=== PATIENT | female | born 1965 | race African-American/Black ===

== ENCOUNTER 2025-02-21 12:20 | Inpatient (IN) | payer OTHER ==
[~2025-02-21] VITALS: Ht 175.3 cm; Wt 120.8 kg
[~2025-02-21 12:20] MED LIST: ALBU18HF2 IH; FLUT1DIS3 INH; LEVO750T68 MT; P20 PO
[2025-02-21] MEDS: KETOROLAC 15MG/ML VIAL IM STA (13:40)
[2025-02-21] MEDS: SODIUM CHLORIDE 0.9% 1,000 ML IV ONE ×2 (13:43→20:39)
[2025-02-21 15:49] LABS: BASOPHILS % 0.5 % (0.0-2.0); EOSINOPHILS % 0.2 % (0.0-5.0); HEMATOCRIT. 31.9 % (36.0-48.0); HEMOGLOBIN. 10.3 g/dL (12.0-16.0); LYMPHOCYTES % 34.5 % (20.0-50.0); MEAN PLATELET VOLUME 7.2 fl (7.4-10.4); MONOCYTES % 9.5 % (2.0-8.0); NEUTROPHILS % 55.3 % (40.0-76.0); PLATELET 151 x1000/uL (130-400); RED BLOOD CELL COUNT 2.95 mill/uL (4.2-5.4); RED CELL DISTRIBUTION WIDTH 18.3 % (11.6-14.6)
[2025-02-21 15:59] LABS: CREATININE 0.7 mg/dL (0.6-1.0); INR 1.3
[2025-02-21 16:00] LABS: UREA NITROGEN BLOOD 9 mg/dL (9-23)
[2025-02-21 16:01] LABS: ASPARTATE AMINOTRANSFERASE 25 IU/L (<34)
[2025-02-21 16:02] LABS: BILIRUBIN DIRECT 0.5 mg/dL (<=3.0); BILIRUBIN TOTAL 0.9 mg/dL (0.1-1.0); PROTEIN TOTAL 5.5 g/dL (6.0-8.3)
[2025-02-21] MEDS: POTASSIUM CHLORIDE 20MEQ/PACKET PO SCH (16:37)
[2025-02-21 19:18] LABS: COLOR URINE DARK YELLOW (YELLOW); GLUCOSE URINE NEGATIVE (NEGATIVE); KETONES URINE TRACE (NEGATIVE); LEUKOCYTE ESTERASE URINE TRACE (NEGATIVE); NITRITE URINE POSITIVE (NEGATIVE); OCCULT BLOOD URINE NEGATIVE (NEGATIVE); PH URINE 6.0 (4.5-8.0); PROTEIN URINE 1+ (NEGATIVE); SPECIFIC GRAVITY URINE 1.023 (1.005-1.030); UROBILINOGEN URINE 1.0 E.U./dL (0.2-1.0)
[2025-02-21] MEDS ORDERED: KCL 10MEQ/50ML PREMIX 50 ML IV SCH (20:00)
[2025-02-21] MEDS ORDERED: LEVOFLOXACIN 500MG PREMIX 100 ML IV SCH (20:00)
[2025-02-21 20:08] LABS: CLARITY URINE HAZY (CLEAR)
[2025-02-21 20:09] LABS: WBC URINE 0-2 /hpf (0-2)
[2025-02-21 20:10] LABS: BACTERIA URINE 2+; MUCUS URINE 1+ /lpf (< = 2+); RBC URINE NONE SEEN /hpf (0-2); SQUAMOUS EPITHELIAL CELL URINE 2+ /lpf (RARE/1+)
[2025-02-21] MEDS: MORPHINE SULFATE 2 MG/ML INJ (NOT FOR IM USE) IV ONE (21:22)
[2025-02-21] MEDS: LEVOFLOXACIN 500MG PREMIX 100 ML IV SCH (21:54)
[2025-02-21] MEDS: IOHEXOL-300 100 ML BOTTLE ONE (23:19)
[2025-02-21] MEDS: KCL 10MEQ/50ML PREMIX 50 ML IV SCH (23:24)
[2025-02-22] MEDS ORDERED: CEFTRIAXONE 1GM/50ML 50 ML IV SCH (01:00)
[2025-02-22 01:29] VITALS: BP 91/50; PULSE 71; RESP 15; TEMP 36.3068
[2025-02-22 04:00] VITALS: BP 94/55; PULSE 75; RESP 18; TEMP 36.6; O2SAT 100
[2025-02-22] MEDS: ONDANSETRON HCL 4MG/2ML INJ IV PRN (06:37)
[2025-02-22 08:00] VITALS: BP 83/53; PULSE 76; RESP 18; TEMP 36.7; O2SAT 98
[2025-02-22 12:00] VITALS: BP 145/72; PULSE 72; RESP 15; TEMP 36.3; O2SAT 98
[2025-02-22] MEDS ORDERED: NALOXONE HCL 0.4MG/ML VIAL IV PRN (12:45)
[2025-02-22 16:00] VITALS: BP 86/45; PULSE 74; RESP 17; TEMP 36.6; O2SAT 98
[2025-02-22] MEDS: ACETAMINOPHEN 650MG/20.3ML UDC PO PRN (16:02)
[2025-02-22 20:00] VITALS: BP 94/50; PULSE 108; RESP 18; TEMP 36.4; O2SAT 99
[2025-02-22] MEDS: LEVOFLOXACIN 500MG PREMIX 100 ML IV SCH (21:37)
[2025-02-23] VITALS: BP 91/54; PULSE 78; RESP 18; TEMP 36.6; O2SAT 98
[2025-02-23] MEDS: HYDROCODONE/ACETAMINOPHEN 10/325MG TABLET PO PRN (00:04)
[2025-02-23 04:00] VITALS: BP 87/55; PULSE 77; RESP 18; TEMP 36.4; O2SAT 100
[2025-02-23 08:00] VITALS: BP 90/57; PULSE 65; RESP 17; TEMP 36.5; O2SAT 99
[2025-02-23] MEDS: PANTOPRAZOLE SODIUM 40 MG/VIAL IV SCH (09:00)
[2025-02-23] MEDS: CHLORDIAZEPOXIDE 25MG CAPSULE PO SCH (09:00)
[2025-02-23 12:00] VITALS: BP 100/58; PULSE 64; RESP 18; TEMP 36.7; O2SAT 98
[2025-02-23] MEDS: DEXT 5%/0.45% NACL 1000ML 1,000 ML IV SCH (13:05)
[2025-02-23 16:00] VITALS: BP 88/51; PULSE 70; RESP 19; TEMP 36.3; O2SAT 96
[2025-02-23] MEDS: SUCRALFATE 1G TABLET PO SCH (18:04)
[2025-02-23] MEDS: MIDODRINE HCL 5MG TABLET PO SCH (18:53)
[2025-02-23 20:00] VITALS: BP 90/61; PULSE 60; RESP 16; TEMP 36.4; O2SAT 100
[2025-02-23 22:14] LABS: BASOPHILS % 0.4 % (0.0-2.0); EOSINOPHILS % 0.8 % (0.0-5.0); HEMATOCRIT. 27.6 % (36.0-48.0); HEMOGLOBIN. 9.0 g/dL (12.0-16.0); LYMPHOCYTES % 41.7 % (20.0-50.0); MEAN PLATELET VOLUME 7.7 fl (7.4-10.4); MONOCYTES % 7.8 % (2.0-8.0); NEUTROPHILS % 49.3 % (40.0-76.0); PLATELET 126 x1000/uL (130-400); RED BLOOD CELL COUNT 2.61 mill/uL (4.2-5.4); RED CELL DISTRIBUTION WIDTH 17.7 % (11.6-14.6)
[2025-02-23 22:28] LABS: CREATININE 0.6 mg/dL (0.6-1.0); UREA NITROGEN BLOOD 11 mg/dL (9-23)
[2025-02-24] VITALS: BP 89/60; PULSE 64; RESP 16; TEMP 36.4; O2SAT 98
[2025-02-24 03:25] LABS: BASOPHILS % 0.3 % (0.0-2.0); EOSINOPHILS % 1.2 % (0.0-5.0); HEMATOCRIT. 25.5 % (36.0-48.0); HEMOGLOBIN. 8.2 g/dL (12.0-16.0); LYMPHOCYTES % 42.6 % (20.0-50.0); MEAN PLATELET VOLUME 7.6 fl (7.4-10.4); MONOCYTES % 6.6 % (2.0-8.0); NEUTROPHILS % 49.3 % (40.0-76.0); PLATELET 113 x1000/uL (130-400); RED BLOOD CELL COUNT 2.38 mill/uL (4.2-5.4); RED CELL DISTRIBUTION WIDTH 17.9 % (11.6-14.6)
[2025-02-24 03:29] LABS: INR 1.5
[2025-02-24 04:00] VITALS: BP 85/59; PULSE 66; RESP 17; TEMP 36.4; O2SAT 99
[2025-02-24 08:00] VITALS: BP 109/61; PULSE 70; RESP 19; TEMP 36.6; O2SAT 98
[2025-02-24] MEDS: MORPHINE SULFATE 4 MG/ML INJ (FOR IV/IM USE) IV PRN (08:51)
[2025-02-24] MEDS: KCL 20MEQ/100ML PREMIX 100 ML IV SCH (08:52)
[2025-02-24] MEDS: POTASSIUM CHLORIDE 20MEQ/PACKET PO NR ×2 (10:00→17:37)
[2025-02-24 12:00] VITALS: BP 112/81; PULSE 76; RESP 17; TEMP 36.7; O2SAT 97
[2025-02-24] MEDS ORDERED: PROPOFOL 200MG/20ML VIAL IV ONE (14:10)
[2025-02-24 16:00] VITALS: BP 106/66; PULSE 75; RESP 18; TEMP 36.4; O2SAT 100
[2025-02-24 20:00] VITALS: BP 101/67; PULSE 75; RESP 20; TEMP 36.4; O2SAT 95
[2025-02-24] MEDS: LEVOFLOXACIN 750MG PREMIX 150 ML IV SCH (20:49)
[2025-02-25] VITALS: BP 85/59; PULSE 65; RESP 18; TEMP 36.4; O2SAT 95
[2025-02-25 04:00] VITALS: BP 89/55; PULSE 71; RESP 18; TEMP 36.3; O2SAT 95
[2025-02-25 08:00] VITALS: BP 91/66; PULSE 83; RESP 17; TEMP 36.6; O2SAT 96
[2025-02-25 12:00] VITALS: BP 94/64; PULSE 70; RESP 17; TEMP 36.3; O2SAT 96
[2025-02-25 16:00] VITALS: BP 96/68; PULSE 56; RESP 17; TEMP 36.4; O2SAT 95
[2025-02-25 17:15] LABS: BASOPHILS % 0.4 % (0.0-2.0); EOSINOPHILS % 1.5 % (0.0-5.0); HEMATOCRIT. 26.1 % (36.0-48.0); HEMOGLOBIN. 8.5 g/dL (12.0-16.0); LYMPHOCYTES % 47.0 % (20.0-50.0); MEAN PLATELET VOLUME 7.7 fl (7.4-10.4); MONOCYTES % 6.4 % (2.0-8.0); NEUTROPHILS % 44.7 % (40.0-76.0); PLATELET 137 x1000/uL (130-400); RED BLOOD CELL COUNT 2.48 mill/uL (4.2-5.4); RED CELL DISTRIBUTION WIDTH 17.4 % (11.6-14.6)
[2025-02-25 17:36] LABS: CREATININE 0.7 mg/dL (0.6-1.0); UREA NITROGEN BLOOD 7 mg/dL (9-23)
[2025-02-25 17:38] LABS: VITAMIN B12 SERUM 1248 pg/mL (211-911)
[2025-02-25 18:10] LABS: HEPATITIS A AB IGM NEGATIVE (Negative); HEPATITIS B CORE AB IGM NEGATIVE (Negative)
[2025-02-25 18:11] LABS: HEPATITIS C AB NON REACTIVE (Neg) (Negative)
[2025-02-25 20:00] VITALS: BP 92/61; PULSE 55; RESP 17; TEMP 36; O2SAT 100
[2025-02-26] VITALS: BP 100/69; PULSE 56; RESP 16; TEMP 36.6; O2SAT 92
[2025-02-26 04:00] VITALS: BP 92/62; PULSE 70; RESP 17; TEMP 36.5; O2SAT 96
[2025-02-26 08:00] VITALS: BP 97/65; PULSE 61; RESP 18; TEMP 36.4; O2SAT 96
[2025-02-26 10:03] LABS: BASOPHILS % 0.4 % (0.0-2.0); EOSINOPHILS % 1.5 % (0.0-5.0); HEMATOCRIT. 26.7 % (36.0-48.0); HEMOGLOBIN. 8.7 g/dL (12.0-16.0); LYMPHOCYTES % 44.7 % (20.0-50.0); MEAN PLATELET VOLUME 8.1 fl (7.4-10.4); MONOCYTES % 6.2 % (2.0-8.0); NEUTROPHILS % 47.2 % (40.0-76.0); PLATELET 131 x1000/uL (130-400); RED BLOOD CELL COUNT 2.51 mill/uL (4.2-5.4); RED CELL DISTRIBUTION WIDTH 17.2 % (11.6-14.6)
[2025-02-26 10:17] LABS: CREATININE 0.7 mg/dL (0.6-1.0)
[2025-02-26 10:18] LABS: UREA NITROGEN BLOOD < 5 mg/dL (9-23)
[2025-02-26 12:00] VITALS: BP 89/58; PULSE 62; RESP 17; TEMP 36.6; O2SAT 96
[2025-02-26 16:00] VITALS: BP 90/61; PULSE 61; RESP 16; TEMP 36.2; O2SAT 98
[2025-02-26 20:00] VITALS: BP 103/71; PULSE 72; RESP 19; TEMP 36.3; O2SAT 97
[2025-02-27] VITALS: BP 95/63; PULSE 65; RESP 19; TEMP 36.4; O2SAT 92
[2025-02-27 04:00] VITALS: BP 100/65; PULSE 75; RESP 16; TEMP 36.4; O2SAT 95
[2025-02-27] MEDS: HYDROCODONE/ACETAMINOPHEN 10/325MG TABLET PO PRN (05:42)
[2025-02-27 08:00] VITALS: BP 102/71; PULSE 62; RESP 17; TEMP 36.3; O2SAT 96
[2025-02-27 12:00] VITALS: BP 98/58; PULSE 65; RESP 17; TEMP 36.4; O2SAT 97
[2025-02-27 14:39] LABS: BASOPHILS % 0.5 % (0.0-2.0); EOSINOPHILS % 2.2 % (0.0-5.0); HEMATOCRIT. 30.5 % (36.0-48.0); HEMOGLOBIN. 9.9 g/dL (12.0-16.0); LYMPHOCYTES % 39.5 % (20.0-50.0); MEAN PLATELET VOLUME 7.9 fl (7.4-10.4); MONOCYTES % 5.8 % (2.0-8.0); NEUTROPHILS % 52.0 % (40.0-76.0); PLATELET 136 x1000/uL (130-400); RED BLOOD CELL COUNT 2.88 mill/uL (4.2-5.4); RED CELL DISTRIBUTION WIDTH 17.3 % (11.6-14.6)
[2025-02-27 14:56] LABS: CREATININE 0.6 mg/dL (0.6-1.0); UREA NITROGEN BLOOD < 5 mg/dL (9-23)
[2025-02-27 16:00] VITALS: BP 103/79; PULSE 68; RESP 18; TEMP 36.6; O2SAT 96
[2025-02-27 20:00] VITALS: BP 112/80; PULSE 88; RESP 18; TEMP 36.3; O2SAT 99
[2025-02-28] VITALS (7 sets, daily range): BP systolic 96–128; BP diastolic 53–75; PULSE 62–100; RESP 16–20; TEMP 35.9–36.5; O2SAT 96–100
[2025-02-28 07:45] LABS: BASOPHILS % 0.1 % (0.0-2.0); EOSINOPHILS % 2.0 % (0.0-5.0); HEMATOCRIT. 29.6 % (36.0-48.0); HEMOGLOBIN. 9.7 g/dL (12.0-16.0); LYMPHOCYTES % 36.4 % (20.0-50.0); MEAN PLATELET VOLUME 8.0 fl (7.4-10.4); MONOCYTES % 6.9 % (2.0-8.0); NEUTROPHILS % 54.6 % (40.0-76.0); PLATELET 133 x1000/uL (130-400); RED BLOOD CELL COUNT 2.83 mill/uL (4.2-5.4); RED CELL DISTRIBUTION WIDTH 17.3 % (11.6-14.6)
[2025-02-28 07:47] LABS: CREATININE 0.6 mg/dL (0.6-1.0); UREA NITROGEN BLOOD < 5 mg/dL (9-23)
[2025-03-01] VITALS: BP 127/67; PULSE 76; RESP 18; TEMP 35.7; O2SAT 100
[2025-03-01 04:00] VITALS: BP 95/72; PULSE 98; RESP 18; TEMP 36.6; O2SAT 100
[2025-03-01 08:00] VITALS: BP 100/71; PULSE 98; RESP 17; TEMP 36.4; O2SAT 100
[2025-03-01] MEDS: ACETAMINOPHEN 325MG TABLET PO PRN (08:39)
[2025-03-01 12:00] VITALS: BP 101/61; PULSE 98; RESP 19; TEMP 36.4; O2SAT 100
[2025-03-01 16:00] VITALS: BP 105/72; PULSE 91; RESP 20; TEMP 36.2; O2SAT 96
[2025-03-01 20:00] VITALS: BP 102/69; PULSE 93; RESP 18; TEMP 36.6; O2SAT 96
[2025-03-02] VITALS: RESP 19
[2025-03-02 04:00] VITALS: BP 110/72; PULSE 89; RESP 17; TEMP 36.1; O2SAT 96
[2025-03-02] MEDS ORDERED: NALOXONE HCL 0.4MG/ML VIAL IV PRN (14:30)
[2025-03-02 20:00] VITALS: BP 108/73; PULSE 69; RESP 17; TEMP 36.6; O2SAT 98
[2025-03-03] VITALS (8 sets, daily range): BP systolic 97–106; BP diastolic 58–74; PULSE 62–107; RESP 15–19; TEMP 36.1–36.6; O2SAT 92–98
[2025-03-03] MEDS: PANTOPRAZOLE 40MG DR TABLET PO SCH (06:42)
[2025-03-03] MEDS ORDERED: HYDR-4001 MT (11:03)
[2025-03-03] MEDS ORDERED: P20 PO (11:03)
[2025-03-03] MEDS: DIPHENHYDRAMINE 25MG CAPSULE PO NR (12:18)
[2025-03-04] VITALS: BP 109/79; PULSE 93; RESP 15; TEMP 36.3; O2SAT 95
[2025-03-04 04:00] VITALS: BP 104/70; PULSE 90; RESP 16; TEMP 36.2; O2SAT 97
[2025-03-04 08:00] VITALS: BP 106/74; PULSE 96; RESP 17; TEMP 36.3; O2SAT 96
[2025-03-04 12:00] VITALS: BP 105/75; PULSE 98; RESP 17; TEMP 36.4; O2SAT 98
[2025-03-04 16:00] VITALS: BP 126/66; PULSE 109; RESP 20; TEMP 37.4; O2SAT 100
[2025-03-04] MEDS: DEXT 5%/0.45% NACL 1000ML 1,000 ML IV SCH (17:52)
[2025-03-04] MEDS: HYDROCODONE/ACETAMINOPHEN 5/325MG TABLET PO PRN (17:53)
[2025-03-04 20:00] VITALS: BP 104/72; PULSE 88; RESP 16; TEMP 36.9; O2SAT 97
[2025-03-04] MEDS: FAMOTIDINE 20MG TABLET PO SCH (21:00)
[2025-03-05] VITALS: BP 108/70; PULSE 91; RESP 18; TEMP 37.1; O2SAT 95
[2025-03-05 04:00] VITALS: BP 109/74; PULSE 81; RESP 20; TEMP 36.4; O2SAT 98
[2025-03-05 08:00] VITALS: BP 118/65; PULSE 45; RESP 20; TEMP 35.4; O2SAT 100
[2025-03-05] MEDS: PREDNISONE 20MG TABLET PO SCH (08:07)
[2025-03-05 12:00] VITALS: BP_SYST 104; BP_SYST 118; BP_DIAS 61; BP_DIAS 67; PULSE 64; PULSE 70; RESP 18; RESP 20; TEMP 36; TEMP 36.3; O2SAT 100; O2SAT 98
[2025-03-05 16:00] VITALS: BP 104/67; PULSE 70; RESP 16; TEMP 36.3; O2SAT 100
[2025-03-05] MEDS ORDERED: NON FORMULARY MED XX SCH (18:15)
[2025-03-05 20:00] VITALS: BP 101/64; PULSE 66; RESP 18; TEMP 36.2; O2SAT 98
[2025-03-06] VITALS (15 sets, daily range): BP systolic 77–108; BP diastolic 53–73; PULSE 78–142; RESP 18–30; TEMP 36.3–37.5; O2SAT 92–100
[2025-03-06 02:56] LABS: BG BASE EXCESS -2.8 mmol/L (-2.0-3.0); BG CARBOXYHEMOGLOBIN 0.2 % (0.5-1.5); BG DEOXYHEMOGLOBIN 12.4 % (0.0-5.0); BG FRACTION INSPIRED OXYGEN 100; BG HCO3 ACT 21.9 mmol/L (21.0-28.0); BG METHEMOGLOBIN 0.3 % (0.5-1.5); BG OXYGEN SATURATION 87.5 % (94.0-98.0); BG OXYHEMOGLOBIN 87.1 % (94.0-98.0); BG PCO2 37.6 mmHg (32.0-45.0); BG PH 7.383 (7.350-7.450); BG PO2 55.3 mmHg (83.0-108.0); BG SAMPLE SITE RIGHT RADIAL; BG TOTAL HEMOGLOBIN 11.9 g/dL (12.0-16.0); BG VENT MODE MASK - NRB
[2025-03-06 03:52] LABS: BASOPHILS % 0.4 % (0.0-2.0); EOSINOPHILS % 0.2 % (0.0-5.0); HEMATOCRIT. 34.9 % (36.0-48.0); HEMOGLOBIN. 11.2 g/dL (12.0-16.0); LYMPHOCYTES % 28.3 % (20.0-50.0); MEAN PLATELET VOLUME 8.5 fl (7.4-10.4); MONOCYTES % 4.5 % (2.0-8.0); NEUTROPHILS % 66.6 % (40.0-76.0); PLATELET 158 x1000/uL (130-400); RED BLOOD CELL COUNT 3.36 mill/uL (4.2-5.4); RED CELL DISTRIBUTION WIDTH 17.7 % (11.6-14.6)
[2025-03-06 03:55] LABS: CREATININE 0.7 mg/dL (0.6-1.0); UREA NITROGEN BLOOD 10 mg/dL (9-23)
[2025-03-06 03:57] LABS: PHOSPHORUS 2.5 mg/dL (2.5-4.9)
[2025-03-06] MEDS: MAGNESIUM 2 G PREMIX 50 ML IV NR (04:53)
[2025-03-06] MEDS ORDERED: ALBUTEROL (0.5%) 2.5MG/0.5ML NEB HHN NR (12:45)
[2025-03-06] MEDS ORDERED: SODIUM BICARBONATE 8.4% 50MEQ/50ML VIAL IV NR (12:45)
[2025-03-06] MEDS: INSULIN REGULAR (HUMULIN R) 1000UNITS/10ML VIAL IV NR (12:45)
[2025-03-06] MEDS ORDERED: LORAZEPAM 2MG/ML UD SYRINGE IV PRN (13:30)
[2025-03-06 13:57] LABS: BG BASE EXCESS -1.6 mmol/L (-2.0-3.0); BG CARBOXYHEMOGLOBIN 0.3 % (0.5-1.5); BG DEOXYHEMOGLOBIN 4.1 % (0.0-5.0); BG FRACTION INSPIRED OXYGEN 100; BG HCO3 ACT 23.5 mmol/L (21.0-28.0); BG METHEMOGLOBIN 0.3 % (0.5-1.5); BG OXYGEN SATURATION 95.9 % (94.0-98.0); BG OXYHEMOGLOBIN 95.3 % (94.0-98.0); BG PCO2 41.2 mmHg (32.0-45.0); BG PH 7.374 (7.350-7.450); BG PO2 83.8 mmHg (83.0-108.0); BG SAMPLE SITE RIGHT RADIAL; BG TOTAL HEMOGLOBIN 10.3 g/dL (12.0-16.0); BG VENT MODE MASK - NRB
[2025-03-06] MEDS ORDERED: CEFTRIAXONE 1GM/50ML 50 ML IV SCH ×2 (14:00→16:00)
[2025-03-06] MEDS: FUROSEMIDE 40MG/4ML VIAL IV NR (14:35)
[2025-03-06] MEDS: CALCIUM GLUCONATE 100MG/ML 10ML VIAL IV NR (14:35)
[2025-03-06] MEDS: SODIUM BICARBONATE 8.4% 50MEQ/50ML SYR IV NR (14:36)
[2025-03-06] MEDS: CEFTRIAXONE 1GM/50ML 50 ML IV SCH (16:34)
[2025-03-06] MEDS ORDERED: SODIUM CHLORIDE 3% FOR INH 15ML NEB INH SCH (18:00)
[2025-03-06] MEDS: IPRATROPIUM/ALBUTEROL 0.5-3(2.5)MG/3ML NEB HHN SCH (20:25)
[2025-03-07] VITALS (16 sets, daily range): BP systolic 93–109; BP diastolic 60–88; PULSE 87–102; RESP 13–25; TEMP 36.6–37.2; O2SAT 95–99
[2025-03-07] MEDS: ACETYLCYSTEINE 200MG/ML 20% VIAL 4ML INH SCH (00:36)
[2025-03-07] MEDS: VISCOUS LIDOCAINE 2% 15 ML UDC MM PRN (08:46)
[2025-03-07] MEDS: SODIUM CHLORIDE 3% FOR INH 4ML NEB INH SCH (10:10)
[2025-03-07] MEDS ORDERED: ALBUMIN HUMAN 25GM/100ML (25%) IV NR (11:00)
[2025-03-07] MEDS ORDERED: ALBUMIN HUMAN 12.5GM/50ML (25%) IV SCH (11:00)
[2025-03-07 11:23] LABS: BASOPHILS % 0.2 % (0.0-2.0); EOSINOPHILS % 0.0 % (0.0-5.0); LYMPHOCYTES % 25.9 % (20.0-50.0); MEAN PLATELET VOLUME 8.0 fl (7.4-10.4); MONOCYTES % 4.9 % (2.0-8.0); NEUTROPHILS % 69.0 % (40.0-76.0); PLATELET 126 x1000/uL (130-400); RED BLOOD CELL COUNT 2.59 mill/uL (4.2-5.4); RED CELL DISTRIBUTION WIDTH 17.2 % (11.6-14.6)
[2025-03-07 11:33] LABS: CREATININE 0.8 mg/dL (0.6-1.0)
[2025-03-07 11:34] LABS: UREA NITROGEN BLOOD 14 mg/dL (9-23)
[2025-03-07 11:35] LABS: ASPARTATE AMINOTRANSFERASE 14 IU/L (<34)
[2025-03-07 11:36] LABS: BILIRUBIN DIRECT 0.3 mg/dL (<=3.0); BILIRUBIN TOTAL 0.4 mg/dL (0.1-1.0); PHOSPHORUS 2.1 mg/dL (2.5-4.9); PROTEIN TOTAL 5.1 g/dL (6.0-8.3)
[2025-03-07 11:43] LABS: FOLIC ACID (FOLATE) SERUM 0.62 ng/mL (>5.38)
[2025-03-07 12:00] LABS: HEMATOCRIT. 26.0 % (36.0-48.0); HEMOGLOBIN. 8.7 g/dL (12.0-16.0)
[2025-03-07] MEDS: ALBUMIN HUMAN 12.5GM/50ML (25%) IV SCH (16:00)
[2025-03-07] MEDS: IPRATROPIUM/ALBUTEROL 0.5-3(2.5)MG/3ML NEB HHN PRN (17:22)
[2025-03-07] MEDS ORDERED: CEFEPIME 2GM IN DEXT 5% 100ML IV SCH (22:30)
[2025-03-07] MEDS: DOXYCYCLINE 100MG/100ML 100 ML IV SCH (22:59)
[2025-03-07] MEDS: CEFEPIME 2GM PREMIX 100ML IV SCH (23:30)
[2025-03-08] VITALS (15 sets, daily range): BP systolic 104–121; BP diastolic 73–88; PULSE 86–106; RESP 13–19; TEMP 35.7–37.1; O2SAT 94–100
[2025-03-08 07:09] LABS: CREATININE 0.7 mg/dL (0.6-1.0); UREA NITROGEN BLOOD 17 mg/dL (9-23)
[2025-03-08 07:11] LABS: ASPARTATE AMINOTRANSFERASE 23 IU/L (<34)
[2025-03-08 07:12] LABS: BASOPHILS % 0.3 % (0.0-2.0); BILIRUBIN DIRECT 0.4 mg/dL (<=3.0); BILIRUBIN TOTAL 0.5 mg/dL (0.1-1.0); EOSINOPHILS % 0.2 % (0.0-5.0); HEMATOCRIT. 22.9 % (36.0-48.0); HEMOGLOBIN. 7.6 g/dL (12.0-16.0); LYMPHOCYTES % 28.5 % (20.0-50.0); MEAN PLATELET VOLUME 8.1 fl (7.4-10.4); MONOCYTES % 3.9 % (2.0-8.0); NEUTROPHILS % 67.1 % (40.0-76.0); PHOSPHORUS 2.5 mg/dL (2.5-4.9); PLATELET 98 x1000/uL (130-400); PROTEIN TOTAL 4.9 g/dL (6.0-8.3); RED BLOOD CELL COUNT 2.28 mill/uL (4.2-5.4); RED CELL DISTRIBUTION WIDTH 17.3 % (11.6-14.6)
[2025-03-08] MEDS ORDERED: POTASSIUM CHLORIDE 20MEQ TABLET SR PO NR (10:00)
[2025-03-08] MEDS: MAGNESIUM 2 G PREMIX 50 ML IV SCH (15:17)
[2025-03-08] MEDS: POTASSIUM CHLORIDE 20MEQ TABLET SR PO NR (16:09)
[2025-03-08] MEDS ORDERED: MORPHINE SULFATE 2 MG/ML INJ (NOT FOR IM USE) IV PRN (16:30)
[2025-03-09] VITALS (20 sets, daily range): BP systolic 106–121; BP diastolic 74–88; PULSE 76–118; RESP 15–20; TEMP 36.6–37.2; O2SAT 89–100
[2025-03-09 02:01] LABS: BG BASE EXCESS 2.9 mmol/L (-2.0-3.0); BG CARBOXYHEMOGLOBIN 0.6 % (0.5-1.5); BG DEOXYHEMOGLOBIN 7.8 % (0.0-5.0); BG FLOW(L/min) 5.00 L/min; BG FRACTION INSPIRED OXYGEN 40%; BG HCO3 ACT 27.5 mmol/L (21.0-28.0); BG METHEMOGLOBIN 0.2 % (0.5-1.5); BG OXYGEN SATURATION 92.1 % (94.0-98.0); BG OXYHEMOGLOBIN 91.4 % (94.0-98.0); BG PCO2 42.5 mmHg (32.0-45.0); BG PH 7.429 (7.350-7.450); BG PO2 66.3 mmHg (83.0-108.0); BG SAMPLE SITE RIGHT RADIAL; BG TOTAL HEMOGLOBIN 9.1 g/dL (12.0-16.0); BG VENT MODE NASAL CANNULA
[2025-03-09 07:11] LABS: BASOPHILS % 0.2 % (0.0-2.0); EOSINOPHILS % 0.3 % (0.0-5.0); HEMATOCRIT. 24.5 % (36.0-48.0); HEMOGLOBIN. 8.1 g/dL (12.0-16.0); LYMPHOCYTES % 24.2 % (20.0-50.0); MEAN PLATELET VOLUME 8.2 fl (7.4-10.4); MONOCYTES % 3.5 % (2.0-8.0); NEUTROPHILS % 71.8 % (40.0-76.0); PLATELET 98 x1000/uL (130-400); RED BLOOD CELL COUNT 2.46 mill/uL (4.2-5.4); RED CELL DISTRIBUTION WIDTH 17.3 % (11.6-14.6)
[2025-03-09 07:18] LABS: PROTEIN TOTAL 5.2 g/dL (6.0-8.3); UREA NITROGEN BLOOD 15 mg/dL (9-23)
[2025-03-09 07:19] LABS: ASPARTATE AMINOTRANSFERASE 23 IU/L (<34); BILIRUBIN DIRECT 0.4 mg/dL (<=3.0)
[2025-03-09 07:20] LABS: BILIRUBIN TOTAL 0.6 mg/dL (0.1-1.0); PHOSPHORUS 2.4 mg/dL (2.5-4.9)
[2025-03-09 08:09] LABS: CREATININE 0.3 mg/dL (0.6-1.0)
[2025-03-09] MEDS: MAGNESIUM 2 G PREMIX 50 ML IV SCH (11:47)
[2025-03-09] MEDS: POTASSIUM CHLORIDE 20MEQ/PACKET PO NR (12:42)
[2025-03-09] MEDS: POTASSIUM PHOSPHATE 15 MMOL in DEXT 5% WATER 245 ML IV NR (12:42)
[2025-03-09] MEDS: FOLIC ACID 1MG TABLET PO SCH (12:43)
[2025-03-09] MEDS ORDERED: NALOXONE HCL 0.4MG/ML VIAL IV PRN (18:30)
[2025-03-09] MEDS: HYDROCODONE/ACETAMINOPHEN 5/325MG TABLET PO PRN (18:56)
[2025-03-10] VITALS (12 sets, daily range): BP systolic 111–126; BP diastolic 77–92; PULSE 71–88; RESP 15–22; TEMP 36.1–37.1; O2SAT 98–100
[2025-03-10 07:07] LABS: BASOPHILS % 0.1 % (0.0-2.0); EOSINOPHILS % 0.4 % (0.0-5.0); HEMATOCRIT. 24.7 % (36.0-48.0); HEMOGLOBIN. 8.1 g/dL (12.0-16.0); LYMPHOCYTES % 40.6 % (20.0-50.0); MEAN PLATELET VOLUME 8.8 fl (7.4-10.4); MONOCYTES % 3.4 % (2.0-8.0); NEUTROPHILS % 55.5 % (40.0-76.0); PLATELET 93 x1000/uL (130-400); RED BLOOD CELL COUNT 2.47 mill/uL (4.2-5.4); RED CELL DISTRIBUTION WIDTH 17.6 % (11.6-14.6)
[2025-03-10 07:29] LABS: UREA NITROGEN BLOOD 13 mg/dL (9-23)
[2025-03-10 07:31] LABS: ASPARTATE AMINOTRANSFERASE 13 IU/L (<34); BILIRUBIN DIRECT 0.3 mg/dL (<=3.0); BILIRUBIN TOTAL 0.5 mg/dL (0.1-1.0); PHOSPHORUS 2.5 mg/dL (2.5-4.9); PROTEIN TOTAL 5.2 g/dL (6.0-8.3)
[2025-03-10 07:36] LABS: CREATININE 0.5 mg/dL (0.6-1.0)
[2025-03-10 07:36] LABS: CLARITY URINE CLEAR (CLEAR); COLOR URINE YELLOW (YELLOW); GLUCOSE URINE NEGATIVE (NEGATIVE); KETONES URINE NEGATIVE (NEGATIVE); LEUKOCYTE ESTERASE URINE NEGATIVE (NEGATIVE); NITRITE URINE NEGATIVE (NEGATIVE); OCCULT BLOOD URINE NEGATIVE (NEGATIVE); PH URINE 7.0 (4.5-8.0); PROTEIN URINE NEGATIVE (NEGATIVE); SPECIFIC GRAVITY URINE 1.009 (1.005-1.030); UROBILINOGEN URINE 0.2 E.U./dL (0.2-1.0)
[2025-03-10 07:59] LABS: INR 1.3
[2025-03-10] MEDS: POTASSIUM CHLORIDE 20MEQ TABLET SR PO NR (09:15)
[2025-03-10 09:44] LABS: BG BASE EXCESS -1.3 mmol/L (-2.0-3.0); BG CARBOXYHEMOGLOBIN 1.4 % (0.5-1.5); BG DEOXYHEMOGLOBIN 9.0 % (0.0-5.0); BG FLOW(L/min) 25.00 L/min; BG FRACTION INSPIRED OXYGEN 40; BG HCO3 ACT 23.6 mmol/L (21.0-28.0); BG METHEMOGLOBIN 0.4 % (0.5-1.5); BG OXYGEN SATURATION 90.8 % (94.0-98.0); BG OXYHEMOGLOBIN 89.2 % (94.0-98.0); BG PCO2 40.5 mmHg (32.0-45.0); BG PH 7.384 (7.350-7.450); BG PO2 65.0 mmHg (83.0-108.0); BG SAMPLE SITE RIGHT RADIAL; BG TOTAL HEMOGLOBIN 7.7 g/dL (12.0-16.0); BG VENT MODE HIGH FLOW
[2025-03-10] MEDS: CEFEPIME 2GM PREMIX 100ML IV SCH (16:53)
[2025-03-11] VITALS (13 sets, daily range): BP systolic 101–129; BP diastolic 72–97; PULSE 87–120; RESP 16–29; TEMP 36.3–36.9; O2SAT 92–100
[2025-03-11] MEDS: KCL 20MEQ/100ML PREMIX 100 ML IV SCH (01:33)
[2025-03-11 07:18] LABS: HEMATOCRIT. 25.7 % (36.0-48.0); HEMOGLOBIN. 8.4 g/dL (12.0-16.0); MEAN PLATELET VOLUME 8.9 fl (7.4-10.4); PLATELET 86 x1000/uL (130-400); RED BLOOD CELL COUNT 2.58 mill/uL (4.2-5.4); RED CELL DISTRIBUTION WIDTH 17.6 % (11.6-14.6)
[2025-03-11 07:46] LABS: CREATININE 0.6 mg/dL (0.6-1.0); UREA NITROGEN BLOOD 13 mg/dL (9-23)
[2025-03-11 07:49] LABS: PHOSPHORUS 2.2 mg/dL (2.5-4.9)
[2025-03-11] MEDS: MAGNESIUM 2 G PREMIX 50 ML IV NR (11:43)
[2025-03-11] MEDS: POTASSIUM PHOSPHATE 15 MMOL in DEXT 5% WATER 245 ML IV NR (14:17)
[2025-03-11 18:57] LABS: LYMPHOCYTES % MANUAL 30.0 % (20.0-60.0); MONOCYTES % MANUAL 7.0 % (2.0-8.0); NEUTROPHILS % MANUAL 63.0 % (45.0-75.0); PLATELET ESTIMATE DECREASED
[2025-03-11] MEDS: MEROPENEM 1G/100ML 100 ML IV SCH (21:40)
[2025-03-12] VITALS (13 sets, daily range): BP systolic 104–134; BP diastolic 73–96; PULSE 96–105; RESP 20–27; TEMP 36.2–36.7; O2SAT 94–100
[2025-03-12 07:09] LABS: CREATININE 0.5 mg/dL (0.6-1.0); UREA NITROGEN BLOOD 12 mg/dL (9-23)
[2025-03-12 07:11] LABS: PHOSPHORUS 2.6 mg/dL (2.5-4.9)
[2025-03-12 07:35] LABS: BASOPHILS % 0.3 % (0.0-2.0); EOSINOPHILS % 0.8 % (0.0-5.0); HEMATOCRIT. 26.1 % (36.0-48.0); HEMOGLOBIN. 8.4 g/dL (12.0-16.0); LYMPHOCYTES % 27.4 % (20.0-50.0); MEAN PLATELET VOLUME 9.3 fl (7.4-10.4); MONOCYTES % 6.0 % (2.0-8.0); NEUTROPHILS % 65.5 % (40.0-76.0); PLATELET 78 x1000/uL (130-400); RED BLOOD CELL COUNT 2.61 mill/uL (4.2-5.4); RED CELL DISTRIBUTION WIDTH 17.9 % (11.6-14.6)
[2025-03-12] MEDS: MAGNESIUM 2 G PREMIX 50 ML IV SCH (09:24)
[2025-03-13] VITALS (12 sets, daily range): BP systolic 90–126; BP diastolic 67–95; PULSE 95–105; RESP 14–29; TEMP 36.1–36.7; O2SAT 93–100
[2025-03-13 06:02] LABS: CREATININE 0.4 mg/dL (0.6-1.0)
[2025-03-13 06:03] LABS: UREA NITROGEN BLOOD 15 mg/dL (9-23)
[2025-03-13 06:05] LABS: PHOSPHORUS 2.3 mg/dL (2.5-4.9)
[2025-03-13 06:29] LABS: BASOPHILS % 0.2 % (0.0-2.0); EOSINOPHILS % 0.7 % (0.0-5.0); HEMATOCRIT. 26.1 % (36.0-48.0); HEMOGLOBIN. 8.3 g/dL (12.0-16.0); LYMPHOCYTES % 29.3 % (20.0-50.0); MEAN PLATELET VOLUME 9.6 fl (7.4-10.4); MONOCYTES % 6.0 % (2.0-8.0); NEUTROPHILS % 63.8 % (40.0-76.0); PLATELET 75 x1000/uL (130-400); RED BLOOD CELL COUNT 2.60 mill/uL (4.2-5.4); RED CELL DISTRIBUTION WIDTH 17.4 % (11.6-14.6)
[2025-03-13 10:41] LABS: BG BASE EXCESS -6.2 mmol/L (-2.0-3.0); BG CARBOXYHEMOGLOBIN 1.0 % (0.5-1.5); BG DEOXYHEMOGLOBIN 10.1 % (0.0-5.0); BG FLOW(L/min) 30.00 L/min; BG FRACTION INSPIRED OXYGEN 50; BG HCO3 ACT 18.9 mmol/L (21.0-28.0); BG METHEMOGLOBIN 0.1 % (0.5-1.5); BG OXYGEN SATURATION 89.8 % (94.0-98.0); BG OXYHEMOGLOBIN 88.8 % (94.0-98.0); BG PCO2 35.4 mmHg (32.0-45.0); BG PH 7.345 (7.350-7.450); BG PO2 63.2 mmHg (83.0-108.0); BG SAMPLE SITE RIGHT RADIAL; BG TOTAL HEMOGLOBIN 8.9 g/dL (12.0-16.0); BG VENT MODE HIGH FLOW
[2025-03-13] MEDS: DEXT 5%/0.9% NACL 1,000 ML IV SCH (12:34)
[2025-03-13] MEDS: MAGNESIUM 2 G PREMIX 50 ML IV NR (12:42)
[2025-03-13] MEDS: SODIUM PHOSPHATE 15 MMOL in DEXT 5% WATER 245 ML IV ONE (16:02)
[2025-03-14] VITALS (17 sets, daily range): BP systolic 79–115; BP diastolic 50–78; PULSE 100–112; RESP 20–42; TEMP 36.4–37.1; O2SAT 75–100
[2025-03-14 05:46] LABS: CREATININE 0.7 mg/dL (0.6-1.0)
[2025-03-14 05:48] LABS: UREA NITROGEN BLOOD 25 mg/dL (9-23)
[2025-03-14 05:50] LABS: PHOSPHORUS 3.1 mg/dL (2.5-4.9)
[2025-03-14 05:55] LABS: BASOPHILS % 0.3 % (0.0-2.0); EOSINOPHILS % 0.1 % (0.0-5.0); HEMATOCRIT. 26.2 % (36.0-48.0); HEMOGLOBIN. 8.6 g/dL (12.0-16.0); LYMPHOCYTES % 25.8 % (20.0-50.0); MEAN PLATELET VOLUME 10.0 fl (7.4-10.4); MONOCYTES % 4.8 % (2.0-8.0); NEUTROPHILS % 69.0 % (40.0-76.0); PLATELET 70 x1000/uL (130-400); RED BLOOD CELL COUNT 2.63 mill/uL (4.2-5.4); RED CELL DISTRIBUTION WIDTH 17.9 % (11.6-14.6)
[2025-03-14] MEDS: IOHEXOL-300 100 ML BOTTLE ONE (08:45)
[2025-03-14 16:02] LABS: BG BASE EXCESS -5.6 mmol/L (-2.0-3.0); BG CARBOXYHEMOGLOBIN 0.3 % (0.5-1.5); BG DEOXYHEMOGLOBIN 8.2 % (0.0-5.0); BG FLOW(L/min) 30.00 L/min; BG FRACTION INSPIRED OXYGEN 60; BG HCO3 ACT 19.2 mmol/L (21.0-28.0); BG METHEMOGLOBIN 0.3 % (0.5-1.5); BG OXYGEN SATURATION 91.8 % (94.0-98.0); BG OXYHEMOGLOBIN 91.2 % (94.0-98.0); BG PCO2 34.6 mmHg (32.0-45.0); BG PH 7.362 (7.350-7.450); BG PO2 67.4 mmHg (83.0-108.0); BG SAMPLE SITE RIGHT RADIAL; BG TOTAL HEMOGLOBIN 8.8 g/dL (12.0-16.0); BG VENT MODE HIGH FLOW
[2025-03-14] MEDS ORDERED: SODIUM CHLORIDE 0.9% 250 ML IV SCH (17:45)
[2025-03-14] MEDS ORDERED: ACETYLCYSTEINE 200MG/ML 20% VIAL 4ML INH SCH (22:00)
[2025-03-14] MEDS: FUROSEMIDE 40MG/4ML VIAL IVP SCH (23:04)
[2025-03-14 23:05] LABS: BG BASE EXCESS -8.8 mmol/L (-2.0-3.0); BG CARBOXYHEMOGLOBIN 0.5 % (0.5-1.5); BG DEOXYHEMOGLOBIN 7.9 % (0.0-5.0); BG FLOW(L/min) 30.00 L/min; BG FRACTION INSPIRED OXYGEN 60; BG HCO3 ACT 15.9 mmol/L (21.0-28.0); BG METHEMOGLOBIN 0.2 % (0.5-1.5); BG OXYGEN SATURATION 92.0 % (94.0-98.0); BG OXYHEMOGLOBIN 91.4 % (94.0-98.0); BG PCO2 30.3 mmHg (32.0-45.0); BG PH 7.339 (7.350-7.450); BG PO2 68.7 mmHg (83.0-108.0); BG SAMPLE SITE LEFT RADIAL; BG TOTAL HEMOGLOBIN 9.0 g/dL (12.0-16.0); BG VENT MODE HIGH FLOW
[2025-03-14] MEDS ORDERED: MIDAZOLAM HCL 100 MG in SODIUM CHLORIDE 0.9% 80 ML IV PRN (23:15)
[2025-03-14] MEDS ORDERED: FENTANYL 2500MCG/250ML PMX 250 ML IV PRN (23:30)
[2025-03-15] VITALS (92 sets, daily range): BP systolic 76–113; BP diastolic 50–77; PULSE 86–113; RESP 19–30; TEMP 36.7–37.3; O2SAT 92–100
[2025-03-15] MEDS: DEXMEDETOMIDINE 100 ML IV PRN (00:26)
[2025-03-15] MEDS: NOREPINEPHRINE 8MG/250ML PMX 250 ML IV PRN (00:27)
[2025-03-15 01:04] LABS: BG BASE EXCESS -9.8 mmol/L (-2.0-3.0); BG CARBOXYHEMOGLOBIN 0.3 % (0.5-1.5); BG DEOXYHEMOGLOBIN 2.7 % (0.0-5.0); BG FRACTION INSPIRED OXYGEN 100; BG HCO3 ACT 17.5 mmol/L (21.0-28.0); BG METHEMOGLOBIN 0.0 % (0.5-1.5); BG OXYGEN SATURATION 97.3 % (94.0-98.0); BG OXYHEMOGLOBIN 97.0 % (94.0-98.0); BG PCO2 44.7 mmHg (32.0-45.0); BG PEEP (cmH2O) 5.0 cmH2O; BG PH 7.210 (7.350-7.450); BG PO2 115.6 mmHg (83.0-108.0); BG SAMPLE SITE LEFT RADIAL; BG TIDAL VOLUME(mL) 450.0 mL; BG TOTAL HEMOGLOBIN 9.3 g/dL (12.0-16.0); BG TOTAL RESPIRATORY RATE 25 b/min; BG VENT MODE VENT - AC; BG VENT RATE 20.0 set
[2025-03-15 06:52] LABS: BASOPHILS % 0.1 % (0.0-2.0); EOSINOPHILS % 0.0 % (0.0-5.0); HEMATOCRIT. 25.8 % (36.0-48.0); HEMOGLOBIN. 8.1 g/dL (12.0-16.0); LYMPHOCYTES % 18.2 % (20.0-50.0); MEAN PLATELET VOLUME 10.4 fl (7.4-10.4); MONOCYTES % 2.6 % (2.0-8.0); NEUTROPHILS % 79.1 % (40.0-76.0); PLATELET 63 x1000/uL (130-400); RED BLOOD CELL COUNT 2.51 mill/uL (4.2-5.4); RED CELL DISTRIBUTION WIDTH 17.7 % (11.6-14.6)
[2025-03-15 07:05] LABS: CREATININE 1.0 mg/dL (0.6-1.0); UREA NITROGEN BLOOD 36 mg/dL (9-23)
[2025-03-15 07:07] LABS: PHOSPHORUS 3.7 mg/dL (2.5-4.9)
[2025-03-15] MEDS: IPRATROPIUM/ALBUTEROL 0.5-3(2.5)MG/3ML NEB HHN SCH (07:43)
[2025-03-15] MEDS: ACETYLCYSTEINE 200MG/ML 20% VIAL 4ML INH SCH (07:43)
[2025-03-15] MEDS: SODIUM BICARBONATE 8.4% 50MEQ/50ML SYR IV NR (08:20)
[2025-03-15] MEDS: SODIUM BICARBONATE 150 MEQ in DEXTROSE 5% WATER 850 ML IV SCH (10:22)
[2025-03-15 12:45] LABS: BG BASE EXCESS -1.9 mmol/L (-2.0-3.0); BG CARBOXYHEMOGLOBIN 0.0 % (0.5-1.5); BG DEOXYHEMOGLOBIN 6.0 % (0.0-5.0); BG FRACTION INSPIRED OXYGEN 80; BG HCO3 ACT 22.9 mmol/L (21.0-28.0); BG METHEMOGLOBIN 0.3 % (0.5-1.5); BG OXYGEN SATURATION 94.0 % (94.0-98.0); BG OXYHEMOGLOBIN 93.7 % (94.0-98.0); BG PCO2 39.1 mmHg (32.0-45.0); BG PEEP (cmH2O) 5.0 cmH2O; BG PH 7.386 (7.350-7.450); BG PO2 73.1 mmHg (83.0-108.0); BG SAMPLE SITE RIGHT RADIAL; BG TIDAL VOLUME(mL) 450.0 mL; BG TOTAL HEMOGLOBIN 8.3 g/dL (12.0-16.0); BG VENT MODE VENT - AC; BG VENT RATE 22.0 set
[2025-03-15 15:38] LABS: CREATININE 1.0 mg/dL (0.6-1.0); UREA NITROGEN BLOOD 36 mg/dL (9-23)
[2025-03-16] VITALS (105 sets, daily range): BP systolic 88–109; BP diastolic 54–73; PULSE 101–118; RESP 20–32; TEMP 36.3–37.6; O2SAT 94–100
[2025-03-16 07:20] LABS: HEMATOCRIT. 24.7 % (36.0-48.0); HEMOGLOBIN. 7.6 g/dL (12.0-16.0); RED BLOOD CELL COUNT 2.35 mill/uL (4.2-5.4); RED CELL DISTRIBUTION WIDTH 18.0 % (11.6-14.6)
[2025-03-16 07:34] LABS: CREATININE 0.8 mg/dL (0.6-1.0); UREA NITROGEN BLOOD 44 mg/dL (9-23)
[2025-03-16 07:36] LABS: PHOSPHORUS 2.1 mg/dL (2.5-4.9)
[2025-03-16 08:11] LABS: BAND% 19.0 % (1.0-6.0); LYMPHOCYTES % MANUAL 21.0 % (20.0-60.0); MONOCYTES % MANUAL 1.0 % (2.0-8.0); NEUTROPHILS % MANUAL 59.0 % (45.0-75.0)
[2025-03-16 08:14] LABS: PLATELET ESTIMATE MARKEDLY DECREASED
[2025-03-16 08:17] LABS: MEAN PLATELET VOLUME 10.9 fl (7.4-10.4)
[2025-03-16 08:39] LABS: PLATELET 40 x1000/uL (130-400)
[2025-03-16] MEDS: POTASSIUM PHOSPHATE 15 MMOL in DEXT 5% WATER 245 ML IV SCH (15:19)
[2025-03-16] MEDS: DEXT 5%/0.9% NACL 1,000 ML IV SCH (15:23)
[2025-03-16 18:12] LABS: BG BASE EXCESS -3.9 mmol/L (-2.0-3.0); BG CARBOXYHEMOGLOBIN 0.8 % (0.5-1.5); BG DEOXYHEMOGLOBIN 5.8 % (0.0-5.0); BG FRACTION INSPIRED OXYGEN 70; BG HCO3 ACT 20.9 mmol/L (21.0-28.0); BG METHEMOGLOBIN 0.3 % (0.5-1.5); BG OXYGEN SATURATION 94.1 % (94.0-98.0); BG OXYHEMOGLOBIN 93.1 % (94.0-98.0); BG PCO2 36.4 mmHg (32.0-45.0); BG PEEP (cmH2O) 5.0 cmH2O; BG PH 7.376 (7.350-7.450); BG PO2 75.9 mmHg (83.0-108.0); BG SAMPLE SITE RIGHT RADIAL; BG TIDAL VOLUME(mL) 450.0 mL; BG TOTAL HEMOGLOBIN 8.0 g/dL (12.0-16.0); BG VENT MODE VENT - AC; BG VENT RATE 18.0 set
[2025-03-17] VITALS (106 sets, daily range): BP systolic 75–110; BP diastolic 48–75; PULSE 99–112; RESP 19–29; TEMP 36.5–38.22528; O2SAT 99–100
[2025-03-17 05:35] LABS: CREATININE 1.0 mg/dL (0.6-1.0); UREA NITROGEN BLOOD 43 mg/dL (9-23)
[2025-03-17 05:37] LABS: PHOSPHORUS 3.2 mg/dL (2.5-4.9)
[2025-03-17 06:05] LABS: HEMATOCRIT. 21.9 % (36.0-48.0); MEAN PLATELET VOLUME 10.4 fl (7.4-10.4); RED BLOOD CELL COUNT 2.12 mill/uL (4.2-5.4); RED CELL DISTRIBUTION WIDTH 17.8 % (11.6-14.6)
[2025-03-17 06:48] LABS: HEMOGLOBIN. 6.9 g/dL (12.0-16.0); PLATELET 24 x1000/uL (130-400)
[2025-03-17] MEDS: DOCUSATE SODIUM SUGAR FREE 100MG/10ML UDC NG SCH (08:21)
[2025-03-17] MEDS: MAGNESIUM 2 G PREMIX 50 ML IV NR (09:16)
[2025-03-17 14:38] LABS: BG BASE EXCESS -4.1 mmol/L (-2.0-3.0); BG CARBOXYHEMOGLOBIN 0.1 % (0.5-1.5); BG DEOXYHEMOGLOBIN 2.2 % (0.0-5.0); BG FRACTION INSPIRED OXYGEN 70; BG HCO3 ACT 20.5 mmol/L (21.0-28.0); BG METHEMOGLOBIN 0.3 % (0.5-1.5); BG OXYGEN SATURATION 97.8 % (94.0-98.0); BG OXYHEMOGLOBIN 97.4 % (94.0-98.0); BG PCO2 35.1 mmHg (32.0-45.0); BG PEEP (cmH2O) 5.0 cmH2O; BG PH 7.384 (7.350-7.450); BG PO2 115.0 mmHg (83.0-108.0); BG SAMPLE SITE RIGHT RADIAL; BG TIDAL VOLUME(mL) 450.0 mL; BG TOTAL HEMOGLOBIN 7.1 g/dL (12.0-16.0); BG VENT MODE VENT - SIMV; BG VENT RATE 18.0 set
[2025-03-17] MEDS: CEFTAZIDIME PENTAHYDRATE 2 G in DEXT 5% WATER 100 ML IV SCH (15:36)
[2025-03-17] MEDS: LACTULOSE 20G/30ML UDC PO SCH (17:08)
[2025-03-17] MEDS: NA PHOS,M-B/NA PHOS,DI-BA ENEMA 118ML PR SCH (18:30)
[2025-03-18] VITALS (110 sets, daily range): BP systolic 67–127; BP diastolic 48–81; PULSE 75–118; RESP 17–30; TEMP 36.6–37.2; O2SAT 90–100
[2025-03-18 06:07] LABS: HEMATOCRIT. 25.3 % (36.0-48.0); HEMOGLOBIN. 8.3 g/dL (12.0-16.0); MEAN PLATELET VOLUME 8.9 fl (7.4-10.4); RED BLOOD CELL COUNT 2.58 mill/uL (4.2-5.4); RED CELL DISTRIBUTION WIDTH 18.7 % (11.6-14.6)
[2025-03-18 06:25] LABS: PLATELET 11 x1000/uL (130-400)
[2025-03-18 06:30] LABS: CREATININE 1.2 mg/dL (0.6-1.0)
[2025-03-18 06:31] LABS: UREA NITROGEN BLOOD 50 mg/dL (9-23)
[2025-03-18 06:33] LABS: PHOSPHORUS 3.9 mg/dL (2.5-4.9)
[2025-03-18] MEDS: LACTULOSE 20G/30ML UDC PO NR (08:36)
[2025-03-18 09:20] LABS: BAND% 23.0 % (1.0-6.0); LYMPHOCYTES % MANUAL 16.0 % (20.0-60.0); MONOCYTES % MANUAL 2.0 % (2.0-8.0); MYELOCYTES % 1.0 % (0-0); NEUTROPHILS % MANUAL 58.0 % (45.0-75.0); PLATELET ESTIMATE MARKEDLY DECREASED
[2025-03-18 10:44] LABS: BAND% 14.0 % (1.0-6.0); EOSINOPHILS % MANUAL 1.0 % (0.0-5.0); LYMPHOCYTES % MANUAL 25.0 % (20.0-60.0); NEUTROPHILS % MANUAL 60.0 % (45.0-75.0); NUCLEATED RED BLOOD CELLS 4 /100 WBC; PLATELET ESTIMATE MARKEDLY DECREASED
[2025-03-18 15:24] LABS: RED BLOOD CELL COUNT 2.43 mill/uL (4.2-5.4); RED CELL DISTRIBUTION WIDTH 18.8 % (11.6-14.6)
[2025-03-18 15:29] LABS: INR 1.5
[2025-03-18 15:34] LABS: PLATELET 36 x1000/uL (130-400)
[2025-03-18 15:38] LABS: BG BASE EXCESS -5.4 mmol/L (-2.0-3.0); BG CARBOXYHEMOGLOBIN 0.6 % (0.5-1.5); BG DEOXYHEMOGLOBIN 4.5 % (0.0-5.0); BG FRACTION INSPIRED OXYGEN 50; BG HCO3 ACT 20.0 mmol/L (21.0-28.0); BG METHEMOGLOBIN 0.1 % (0.5-1.5); BG OXYGEN SATURATION 95.5 % (94.0-98.0); BG OXYHEMOGLOBIN 94.8 % (94.0-98.0); BG PCO2 38.6 mmHg (32.0-45.0); BG PEEP (cmH2O) 8.0 cmH2O; BG PH 7.332 (7.350-7.450); BG PO2 84.4 mmHg (83.0-108.0); BG SAMPLE SITE RIGHT BRACHIAL; BG TIDAL VOLUME(mL) 500.0 mL; BG TOTAL HEMOGLOBIN 9.5 g/dL (12.0-16.0); BG VENT MODE VENT - AC; BG VENT RATE 18.0 set
[2025-03-18] MEDS: NOREPINEPHRINE 32 MG in DEXT 5% WATER 218 ML IV PRN (21:37)
[2025-03-19] VITALS (115 sets, daily range): BP systolic 74–124; BP diastolic 48–82; PULSE 99–125; RESP 17–34; TEMP 36.9–39.00312; O2SAT 91–100
[2025-03-19] MEDS ORDERED: VASOPRESSIN 20 UNIT in SODIUM CHLORIDE 0.9% 99 ML IV PRN ×2 (04:30→18:30)
[2025-03-19 06:18] LABS: BASOPHILS % 0.8 % (0.0-2.0); EOSINOPHILS % 2.0 % (0.0-5.0); HEMATOCRIT. 23.8 % (36.0-48.0); HEMOGLOBIN. 7.7 g/dL (12.0-16.0); LYMPHOCYTES % 42.4 % (20.0-50.0); MEAN PLATELET VOLUME 9.8 fl (7.4-10.4); MONOCYTES % 3.3 % (2.0-8.0); NEUTROPHILS % 51.5 % (40.0-76.0); RED BLOOD CELL COUNT 2.39 mill/uL (4.2-5.4); RED CELL DISTRIBUTION WIDTH 18.8 % (11.6-14.6)
[2025-03-19 06:26] LABS: UREA NITROGEN BLOOD 55.0 mg/dL (9-23)
[2025-03-19 07:12] LABS: PLATELET 24 x1000/uL (130-400)
[2025-03-19] MEDS: KCL 20MEQ/100ML PREMIX 100 ML IV SCH (08:35)
[2025-03-19 08:40] LABS: BG BASE EXCESS -11.4 mmol/L (-2.0-3.0); BG CARBOXYHEMOGLOBIN 0.3 % (0.5-1.5); BG DEOXYHEMOGLOBIN 8.9 % (0.0-5.0); BG FRACTION INSPIRED OXYGEN 50; BG HCO3 ACT 16.5 mmol/L (21.0-28.0); BG METHEMOGLOBIN 0.3 % (0.5-1.5); BG OXYGEN SATURATION 91.0 % (94.0-98.0); BG OXYHEMOGLOBIN 90.5 % (94.0-98.0); BG PCO2 46.8 mmHg (32.0-45.0); BG PEEP (cmH2O) 6.0 cmH2O; BG PH 7.166 (7.350-7.450); BG PO2 72.5 mmHg (83.0-108.0); BG SAMPLE SITE RIGHT RADIAL; BG TIDAL VOLUME(mL) 500.0 mL; BG TOTAL HEMOGLOBIN 8.3 g/dL (12.0-16.0); BG TOTAL RESPIRATORY RATE 23 b/min; BG VENT MODE VENT - AC; BG VENT RATE 18.0 set
[2025-03-19 09:24] LABS: CREATININE 1.7 mg/dL (0.6-1.0)
[2025-03-19] MEDS: SODIUM BICARBONATE 8.4% 50MEQ/50ML SYR IV SCH ×2 (09:37→16:21)
[2025-03-19 10:53] LABS: BG BASE EXCESS -10.7 mmol/L (-2.0-3.0); BG CARBOXYHEMOGLOBIN 0.1 % (0.5-1.5); BG DEOXYHEMOGLOBIN 4.1 % (0.0-5.0); BG FRACTION INSPIRED OXYGEN 65; BG HCO3 ACT 15.9 mmol/L (21.0-28.0); BG METHEMOGLOBIN 0.3 % (0.5-1.5); BG OXYGEN SATURATION 95.9 % (94.0-98.0); BG OXYHEMOGLOBIN 95.5 % (94.0-98.0); BG PCO2 38.0 mmHg (32.0-45.0); BG PEEP (cmH2O) 6.0 cmH2O; BG PH 7.239 (7.350-7.450); BG PO2 91.6 mmHg (83.0-108.0); BG SAMPLE SITE RIGHT RADIAL; BG TIDAL VOLUME(mL) 500.0 mL; BG TOTAL HEMOGLOBIN 8.5 g/dL (12.0-16.0); BG VENT MODE VENT - AC; BG VENT RATE 26.0 set
[2025-03-19] MEDS: HYDROCODONE/ACETAMINOPHEN 5/325MG TABLET PO NR (14:25)
[2025-03-19 15:15] LABS: BG BASE EXCESS -14.4 mmol/L (-2.0-3.0); BG CARBOXYHEMOGLOBIN 0.7 % (0.5-1.5); BG DEOXYHEMOGLOBIN 6.3 % (0.0-5.0); BG FRACTION INSPIRED OXYGEN 65; BG HCO3 ACT 13.6 mmol/L (21.0-28.0); BG METHEMOGLOBIN 0.4 % (0.5-1.5); BG OXYGEN SATURATION 93.6 % (94.0-98.0); BG OXYHEMOGLOBIN 92.6 % (94.0-98.0); BG PCO2 40.3 mmHg (32.0-45.0); BG PEEP (cmH2O) 6.0 cmH2O; BG PH 7.145 (7.350-7.450); BG PO2 83.7 mmHg (83.0-108.0); BG SAMPLE SITE RIGHT RADIAL; BG TIDAL VOLUME(mL) 500.0 mL; BG TOTAL HEMOGLOBIN 8.5 g/dL (12.0-16.0); BG VENT MODE VENT - AC; BG VENT RATE 26.0 set
[2025-03-19] MEDS ORDERED: PHENYLEPHRINE 50MG/250ML PMX 250 ML IV SCH (16:00)
[2025-03-19] MEDS: PHENYLEPHRINE 50MG/250ML PMX 250 ML IV PRN (16:22)
[2025-03-19 18:19] LABS: RED BLOOD CELL COUNT 2.28 mill/uL (4.2-5.4); RED CELL DISTRIBUTION WIDTH 19.2 % (11.6-14.6)
[2025-03-19 18:20] LABS: BG BASE EXCESS -14.2 mmol/L (-2.0-3.0); BG CARBOXYHEMOGLOBIN 0.2 % (0.5-1.5); BG DEOXYHEMOGLOBIN 1.9 % (0.0-5.0); BG FRACTION INSPIRED OXYGEN 65; BG HCO3 ACT 13.4 mmol/L (21.0-28.0); BG METHEMOGLOBIN 0.2 % (0.5-1.5); BG OXYGEN SATURATION 98.1 % (94.0-98.0); BG OXYHEMOGLOBIN 97.7 % (94.0-98.0); BG PCO2 38.3 mmHg (32.0-45.0); BG PEEP (cmH2O) 6.0 cmH2O; BG PH 7.161 (7.350-7.450); BG PO2 133.7 mmHg (83.0-108.0); BG SAMPLE SITE RIGHT RADIAL; BG TIDAL VOLUME(mL) 500.0 mL; BG TOTAL HEMOGLOBIN 7.9 g/dL (12.0-16.0); BG TOTAL RESPIRATORY RATE 30 b/min; BG VENT MODE VENT - AC; BG VENT RATE 26.0 set
[2025-03-19 18:26] LABS: PLATELET 18 x1000/uL (130-400)
[2025-03-19] MEDS: SODIUM BICARBONATE 100 MEQ in SODIUM CHLORIDE 0.45% 900 ML IV SCH (21:28)
[2025-03-19] MEDS: THIAMINE HCL 200 MG in SODIUM CHLORIDE 0.9% 98 ML IV SCH (21:28)
[2025-03-19] MEDS: HYDROCORTISONE SOD SUCCINATE 100 MG/2 ML VIAL IV SCH (21:29)
[2025-03-19 22:52] LABS: ASPARTATE AMINOTRANSFERASE 138 IU/L (<34); BILIRUBIN DIRECT 1.0 mg/dL (<=3.0); BILIRUBIN TOTAL 1.2 mg/dL (0.1-1.0); PROTEIN TOTAL 4.7 g/dL (6.0-8.3)
[2025-03-20] VITALS (97 sets, daily range): BP systolic 88–117; BP diastolic 54–82; PULSE 78–119; RESP 22–35; TEMP 36.6–38.1; O2SAT 96–100
[2025-03-20 06:21] LABS: HEMATOCRIT. 22.5 % (36.0-48.0); HEMOGLOBIN. 7.4 g/dL (12.0-16.0); MEAN PLATELET VOLUME 9.1 fl (7.4-10.4); RED BLOOD CELL COUNT 2.24 mill/uL (4.2-5.4); RED CELL DISTRIBUTION WIDTH 19.3 % (11.6-14.6)
[2025-03-20 06:38] LABS: UREA NITROGEN BLOOD 64 mg/dL (9-23)
[2025-03-20 06:40] LABS: PHOSPHORUS 7.2 mg/dL (2.5-4.9)
[2025-03-20 06:50] LABS: CREATININE 2.3 mg/dL (0.6-1.0)
[2025-03-20 06:59] LABS: PLATELET 33 x1000/uL (130-400)
[2025-03-20 09:03] LABS: BG BASE EXCESS -7.4 mmol/L (-2.0-3.0); BG CARBOXYHEMOGLOBIN 1.2 % (0.5-1.5); BG DEOXYHEMOGLOBIN 2.5 % (0.0-5.0); BG FRACTION INSPIRED OXYGEN 60; BG HCO3 ACT 18.1 mmol/L (21.0-28.0); BG METHEMOGLOBIN 0.4 % (0.5-1.5); BG OXYGEN SATURATION 97.5 % (94.0-98.0); BG OXYHEMOGLOBIN 95.9 % (94.0-98.0); BG PCO2 36.7 mmHg (32.0-45.0); BG PEEP (cmH2O) 6.0 cmH2O; BG PH 7.312 (7.350-7.450); BG PO2 106.1 mmHg (83.0-108.0); BG SAMPLE SITE RIGHT RADIAL; BG TIDAL VOLUME(mL) 500.0 mL; BG TOTAL HEMOGLOBIN 7.1 g/dL (12.0-16.0); BG VENT MODE VENT - AC; BG VENT RATE 24.0 set
[2025-03-20 10:04] LABS: BAND% 3.0 % (1.0-6.0); LYMPHOCYTES % MANUAL 51.0 % (20.0-60.0); MONOCYTES % MANUAL 3.0 % (2.0-8.0); NEUTROPHILS % MANUAL 43.0 % (45.0-75.0); NUCLEATED RED BLOOD CELLS 19 /100 WBC; PLATELET ESTIMATE MARKEDLY DECREASED
[2025-03-21] VITALS (104 sets, daily range): BP systolic 86–122; BP diastolic 61–87; PULSE 46–91; RESP 15–35; TEMP 36.4–36.6; O2SAT 92–100
[2025-03-21 06:33] LABS: BASOPHILS % 0.2 % (0.0-2.0); EOSINOPHILS % 0.0 % (0.0-5.0); LYMPHOCYTES % 28.5 % (20.0-50.0); MEAN PLATELET VOLUME 8.8 fl (7.4-10.4); MONOCYTES % 4.5 % (2.0-8.0); NEUTROPHILS % 66.8 % (40.0-76.0); RED BLOOD CELL COUNT 2.15 mill/uL (4.2-5.4); RED CELL DISTRIBUTION WIDTH 18.8 % (11.6-14.6)
[2025-03-21 06:43] LABS: CREATININE 2.5 mg/dL (0.6-1.0); UREA NITROGEN BLOOD 65.0 mg/dL (9-23)
[2025-03-21 06:52] LABS: HEMATOCRIT. 21.0 % (36.0-48.0); HEMOGLOBIN. 6.8 g/dL (12.0-16.0); PLATELET 19 x1000/uL (130-400)
[2025-03-21] MEDS: KCL 20MEQ/100ML PREMIX 100 ML IV ONE (07:40)
[2025-03-21] MEDS ORDERED: OCTREOTIDE 1,000 MCG in SODIUM CHLORIDE 0.9% 98 ML IV SCH (10:15)
[2025-03-21] MEDS ORDERED: IPRATROPIUM/ALBUTEROL 0.5-3(2.5)MG/3ML NEB HHN PRN (14:15)
[2025-03-21] MEDS: PANTOPRAZOLE SODIUM 40 MG/VIAL IV SCH (20:20)
[2025-03-22] VITALS (103 sets, daily range): BP systolic 81–112; BP diastolic 59–77; PULSE 61–97; RESP 13–33; TEMP 35–36.6; O2SAT 91–100
[2025-03-22] MEDS: IPRATROPIUM/ALBUTEROL 0.5-3(2.5)MG/3ML NEB HHN SCH (01:32)
[2025-03-22 07:01] LABS: INR 1.9
[2025-03-22 07:02] LABS: HEMATOCRIT. 24.9 % (36.0-48.0); HEMOGLOBIN. 8.2 g/dL (12.0-16.0); MEAN PLATELET VOLUME 9.7 fl (7.4-10.4); RED BLOOD CELL COUNT 2.60 mill/uL (4.2-5.4); RED CELL DISTRIBUTION WIDTH 20.0 % (11.6-14.6)
[2025-03-22 07:21] LABS: PLATELET 14 x1000/uL (130-400)
[2025-03-22 07:25] LABS: CREATININE 2.7 mg/dL (0.6-1.0)
[2025-03-22 07:27] LABS: UREA NITROGEN BLOOD 57.0 mg/dL (9-23)
[2025-03-22 09:47] LABS: BG BASE EXCESS -2.9 mmol/L (-2.0-3.0); BG CARBOXYHEMOGLOBIN 0.9 % (0.5-1.5); BG DEOXYHEMOGLOBIN 4.2 % (0.0-5.0); BG FRACTION INSPIRED OXYGEN 30; BG HCO3 ACT 19.8 mmol/L (21.0-28.0); BG METHEMOGLOBIN 0.0 % (0.5-1.5); BG OXYGEN SATURATION 95.8 % (94.0-98.0); BG OXYHEMOGLOBIN 94.9 % (94.0-98.0); BG PCO2 27.1 mmHg (32.0-45.0); BG PEEP (cmH2O) 5.0 cmH2O; BG PH 7.482 (7.350-7.450); BG PO2 83.7 mmHg (83.0-108.0); BG SAMPLE SITE RH; BG TIDAL VOLUME(mL) 500.0 mL; BG TOTAL HEMOGLOBIN 8.7 g/dL (12.0-16.0); BG VENT MODE VENT - AC; BG VENT RATE 28.0 set
[2025-03-22 12:02] LABS: BAND% 9.0 % (1.0-6.0); LYMPHOCYTES % MANUAL 24.0 % (20.0-60.0); METAMYELOCYTES % 1.0 % (0-0); MONOCYTES % MANUAL 10.0 % (2.0-8.0); NEUTROPHILS % MANUAL 56.0 % (45.0-75.0); NUCLEATED RED BLOOD CELLS 24 /100 WBC; PLATELET ESTIMATE MARKEDLY DECREASED
[2025-03-22] MEDS: HYDROCORTISONE SOD SUCCINATE 100 MG/2 ML VIAL IV SCH (22:05)
[2025-03-23] VITALS (110 sets, daily range): BP systolic 77–101; BP diastolic 50–77; PULSE 70–100; RESP 15–32; TEMP 36.1–37; O2SAT 89–100
[2025-03-23 05:36] LABS: BASOPHILS % 0.6 % (0.0-2.0); EOSINOPHILS % 0.0 % (0.0-5.0); HEMATOCRIT. 24.7 % (36.0-48.0); HEMOGLOBIN. 8.0 g/dL (12.0-16.0); LYMPHOCYTES % 27.1 % (20.0-50.0); MEAN PLATELET VOLUME 9.9 fl (7.4-10.4); MONOCYTES % 8.1 % (2.0-8.0); NEUTROPHILS % 64.2 % (40.0-76.0); RED BLOOD CELL COUNT 2.63 mill/uL (4.2-5.4); RED CELL DISTRIBUTION WIDTH 19.7 % (11.6-14.6)
[2025-03-23 05:40] LABS: PLATELET 17 x1000/uL (130-400)
[2025-03-23 05:50] LABS: CREATININE 3.1 mg/dL (0.6-1.0); UREA NITROGEN BLOOD 63.0 mg/dL (9-23)
[2025-03-23 09:58] LABS: BG BASE EXCESS -4.4 mmol/L (-2.0-3.0); BG CARBOXYHEMOGLOBIN 0.4 % (0.5-1.5); BG DEOXYHEMOGLOBIN 5.6 % (0.0-5.0); BG FRACTION INSPIRED OXYGEN 30; BG HCO3 ACT 19.0 mmol/L (21.0-28.0); BG METHEMOGLOBIN 0.3 % (0.5-1.5); BG OXYGEN SATURATION 94.4 % (94.0-98.0); BG OXYHEMOGLOBIN 93.7 % (94.0-98.0); BG PCO2 28.8 mmHg (32.0-45.0); BG PEEP (cmH2O) 5.0 cmH2O; BG PH 7.438 (7.350-7.450); BG PO2 78.0 mmHg (83.0-108.0); BG SAMPLE SITE RIGHT RADIAL; BG TIDAL VOLUME(mL) 500.0 mL; BG TOTAL HEMOGLOBIN 8.6 g/dL (12.0-16.0); BG VENT MODE VENT - AC; BG VENT RATE 20.0 set
[2025-03-23 21:35] LABS: INR 1.9
[2025-03-24] VITALS (102 sets, daily range): BP systolic 77–114; BP diastolic 54–88; PULSE 73–90; RESP 16–31; TEMP 36.3–37.1; O2SAT 82–100
[2025-03-24 06:53] LABS: BASOPHILS % 0.1 % (0.0-2.0); EOSINOPHILS % 0.0 % (0.0-5.0); HEMATOCRIT. 24.4 % (36.0-48.0); HEMOGLOBIN. 7.9 g/dL (12.0-16.0); LYMPHOCYTES % 20.5 % (20.0-50.0); MEAN PLATELET VOLUME 11.6 fl (7.4-10.4); MONOCYTES % 8.7 % (2.0-8.0); NEUTROPHILS % 70.7 % (40.0-76.0); RED BLOOD CELL COUNT 2.58 mill/uL (4.2-5.4); RED CELL DISTRIBUTION WIDTH 20.0 % (11.6-14.6)
[2025-03-24 07:01] LABS: CREATININE 3.5 mg/dL (0.6-1.0)
[2025-03-24 07:02] LABS: UREA NITROGEN BLOOD 87 mg/dL (9-23)
[2025-03-24 09:42] LABS: BG BASE EXCESS -4.3 mmol/L (-2.0-3.0); BG CARBOXYHEMOGLOBIN 0.4 % (0.5-1.5); BG DEOXYHEMOGLOBIN 3.4 % (0.0-5.0); BG FRACTION INSPIRED OXYGEN 40; BG HCO3 ACT 19.3 mmol/L (21.0-28.0); BG METHEMOGLOBIN 0.3 % (0.5-1.5); BG OXYGEN SATURATION 96.6 % (94.0-98.0); BG OXYHEMOGLOBIN 95.9 % (94.0-98.0); BG PCO2 29.9 mmHg (32.0-45.0); BG PEEP (cmH2O) 5.0 cmH2O; BG PH 7.428 (7.350-7.450); BG PO2 92.9 mmHg (83.0-108.0); BG SAMPLE SITE RIGHT RADIAL; BG TIDAL VOLUME(mL) 500.0 mL; BG TOTAL HEMOGLOBIN 8.5 g/dL (12.0-16.0); BG TOTAL RESPIRATORY RATE 23 b/min; BG VENT MODE VENT - AC; BG VENT RATE 20.0 set
[2025-03-24] MEDS: POTASSIUM CHLORIDE 20MEQ/PACKET PO NR (12:04)
[2025-03-24] MEDS: ALBUMIN HUMAN 25GM/100ML (25%) IV NR (12:04)
[2025-03-24] MEDS: CEFTAZIDIME PENTAHYDRATE 2 G in DEXT 5% WATER 100 ML IV SCH (13:42)
[2025-03-24 17:40] LABS: SODIUM URINE RANDOM 58.0 mEq/L
[2025-03-24 17:47] LABS: CREATININE URINE RANDOM 41.2 mg/dL
[2025-03-24 17:48] LABS: OSMOLALITY URINE 337.0 mOsm/kg (500-850)
[2025-03-24 17:52] LABS: COLOR URINE DARK YELLOW (YELLOW); GLUCOSE URINE NEGATIVE (NEGATIVE); KETONES URINE TRACE (NEGATIVE); LEUKOCYTE ESTERASE URINE 1+ (NEGATIVE); NITRITE URINE NEGATIVE (NEGATIVE); OCCULT BLOOD URINE 3+ (NEGATIVE); PH URINE 5.5 (4.5-8.0); PROTEIN URINE 3+ (NEGATIVE); SPECIFIC GRAVITY URINE 1.024 (1.005-1.030); UROBILINOGEN URINE 0.2 E.U./dL (0.2-1.0)
[2025-03-24 18:42] LABS: CLARITY URINE HAZY (CLEAR)
[2025-03-24 18:43] LABS: WBC URINE 0-2 /hpf (0-2)
[2025-03-24 18:45] LABS: RBC URINE 25-50 /hpf (0-2)
[2025-03-24 18:46] LABS: BACTERIA URINE TRACE; SQUAMOUS EPITHELIAL CELL URINE RARE /lpf (RARE/1+)
[2025-03-24 18:47] LABS: YEAST URINE 4+
[2025-03-24] MEDS ORDERED: DEXTROSE 50% WATER 50ML SYRINGE IV PRN (19:30)
[2025-03-24] MEDS: BLOOD SUGAR DIAGNOSTIC STRIP TEST SCH (23:21)
[2025-03-24] MEDS: INSULIN LISPRO 100 UNITS/ML SUBCUT SCH (23:28)
[2025-03-25] VITALS (109 sets, daily range): BP systolic 71–108; BP diastolic 52–83; PULSE 67–97; RESP 0–31; TEMP 33.9–36.61404; O2SAT 44–100
[2025-03-25 08:04] LABS: BASOPHILS % 0.3 % (0.0-2.0); EOSINOPHILS % 0.1 % (0.0-5.0); HEMATOCRIT. 22.6 % (36.0-48.0); HEMOGLOBIN. 7.2 g/dL (12.0-16.0); LYMPHOCYTES % 12.9 % (20.0-50.0); MEAN PLATELET VOLUME 11.7 fl (7.4-10.4); MONOCYTES % 8.0 % (2.0-8.0); NEUTROPHILS % 78.7 % (40.0-76.0); RED BLOOD CELL COUNT 2.36 mill/uL (4.2-5.4); RED CELL DISTRIBUTION WIDTH 19.8 % (11.6-14.6)
[2025-03-25 08:24] LABS: PLATELET 32 x1000/uL (130-400)
[2025-03-25 08:28] LABS: ASPARTATE AMINOTRANSFERASE 27 IU/L (<34); CREATININE 3.8 mg/dL (0.6-1.0); PROTEIN TOTAL 4.0 g/dL (6.0-8.3)
[2025-03-25 08:30] LABS: BILIRUBIN DIRECT 0.4 mg/dL (<=3.0); BILIRUBIN TOTAL 0.6 mg/dL (0.1-1.0); PHOSPHORUS 6.6 mg/dL (2.5-4.9)
[2025-03-25 09:08] LABS: UREA NITROGEN BLOOD 102 mg/dL (9-23)
[2025-03-25] MEDS: KCL 20MEQ/100ML PREMIX 100 ML IV SCH (09:34)
[2025-03-25 10:11] LABS: BG BASE EXCESS -6.6 mmol/L (-2.0-3.0); BG CARBOXYHEMOGLOBIN 0.9 % (0.5-1.5); BG DEOXYHEMOGLOBIN 1.8 % (0.0-5.0); BG FRACTION INSPIRED OXYGEN 40; BG HCO3 ACT 18.1 mmol/L (21.0-28.0); BG METHEMOGLOBIN 0.3 % (0.5-1.5); BG OXYGEN SATURATION 98.2 % (94.0-98.0); BG OXYHEMOGLOBIN 97.0 % (94.0-98.0); BG PCO2 32.1 mmHg (32.0-45.0); BG PEEP (cmH2O) 5.0 cmH2O; BG PH 7.368 (7.350-7.450); BG PO2 125.3 mmHg (83.0-108.0); BG SAMPLE SITE RIGHT RADIAL; BG TIDAL VOLUME(mL) 500.0 mL; BG TOTAL HEMOGLOBIN 7.3 g/dL (12.0-16.0); BG VENT MODE VENT - AC; BG VENT RATE 20.0 set
[2025-03-26] VITALS (99 sets, daily range): BP systolic 82–130; BP diastolic 56–87; PULSE 76–94; RESP 19–29; TEMP 35.8–36.6; O2SAT 54–100
[2025-03-26 01:43] LABS: HEMATOCRIT. 26.1 % (36.0-48.0); HEMOGLOBIN. 8.3 g/dL (12.0-16.0); MEAN PLATELET VOLUME 12.4 fl (7.4-10.4); PLATELET 54 x1000/uL (130-400); RED BLOOD CELL COUNT 2.75 mill/uL (4.2-5.4); RED CELL DISTRIBUTION WIDTH 18.1 % (11.6-14.6)
[2025-03-26 05:26] LABS: BAND% 1.0 % (1.0-6.0); LYMPHOCYTES % MANUAL 17.0 % (20.0-60.0); METAMYELOCYTES % 1.0 % (0-0); MONOCYTES % MANUAL 10.0 % (2.0-8.0); NEUTROPHILS % MANUAL 71.0 % (45.0-75.0); NUCLEATED RED BLOOD CELLS 11 /100 WBC
[2025-03-26 05:27] LABS: PLATELET ESTIMATE DECREAS
[2025-03-26 06:23] LABS: HEMATOCRIT. 25.9 % (36.0-48.0); HEMOGLOBIN. 8.2 g/dL (12.0-16.0); MEAN PLATELET VOLUME 12.5 fl (7.4-10.4); PLATELET 56 x1000/uL (130-400); RED BLOOD CELL COUNT 2.73 mill/uL (4.2-5.4); RED CELL DISTRIBUTION WIDTH 18.0 % (11.6-14.6)
[2025-03-26 06:55] LABS: CREATININE 4.1 mg/dL (0.6-1.0)
[2025-03-26 06:57] LABS: ASPARTATE AMINOTRANSFERASE 47 IU/L (<34); BILIRUBIN DIRECT 0.4 mg/dL (<=3.0); BILIRUBIN TOTAL 0.7 mg/dL (0.1-1.0); PHOSPHORUS 7.1 mg/dL (2.5-4.9); PROTEIN TOTAL 4.0 g/dL (6.0-8.3)
[2025-03-26 07:10] LABS: INR 1.4
[2025-03-26 07:18] LABS: UREA NITROGEN BLOOD 108 mg/dL (9-23)
[2025-03-26] MEDS: MAGNESIUM 2 G PREMIX 50 ML IV NR (09:47)
[2025-03-26 10:36] LABS: BG BASE EXCESS -8.2 mmol/L (-2.0-3.0); BG CARBOXYHEMOGLOBIN 1.2 % (0.5-1.5); BG DEOXYHEMOGLOBIN 6.1 % (0.0-5.0); BG FRACTION INSPIRED OXYGEN 35; BG HCO3 ACT 16.8 mmol/L (21.0-28.0); BG METHEMOGLOBIN 0.2 % (0.5-1.5); BG OXYGEN SATURATION 93.8 % (94.0-98.0); BG OXYHEMOGLOBIN 92.5 % (94.0-98.0); BG PCO2 32.8 mmHg (32.0-45.0); BG PEEP (cmH2O) 5.0 cmH2O; BG PH 7.328 (7.350-7.450); BG PO2 76.8 mmHg (83.0-108.0); BG SAMPLE SITE RIGHT RADIAL; BG TIDAL VOLUME(mL) 500.0 mL; BG TOTAL HEMOGLOBIN 10.1 g/dL (12.0-16.0); BG VENT MODE VENT - AC; BG VENT RATE 20.0 set
[2025-03-26] MEDS: CEFTAZIDIME PENTAHYDRATE 1 G in DEXTROSE 5% WATER 50 ML IV SCH (12:47)
[2025-03-26 15:54] LABS: LYMPHOCYTES % MANUAL 3.0 % (20.0-60.0); MONOCYTES % MANUAL 6.0 % (2.0-8.0); NEUTROPHILS % MANUAL 91.0 % (45.0-75.0); NUCLEATED RED BLOOD CELLS 9 /100 WBC; PLATELET ESTIMATE DECREASED
[2025-03-27] VITALS (101 sets, daily range): BP systolic 71–160; BP diastolic 24–93; PULSE 71–108; RESP 17–38; TEMP 36.4–37.2; O2SAT 80–100
[2025-03-27 06:26] LABS: HEMATOCRIT. 26.7 % (36.0-48.0); HEMOGLOBIN. 8.2 g/dL (12.0-16.0); MEAN PLATELET VOLUME 12.8 fl (7.4-10.4); PLATELET 77 x1000/uL (130-400); RED BLOOD CELL COUNT 2.76 mill/uL (4.2-5.4); RED CELL DISTRIBUTION WIDTH 18.7 % (11.6-14.6)
[2025-03-27 06:47] LABS: CREATININE 3.9 mg/dL (0.6-1.0); UREA NITROGEN BLOOD 81 mg/dL (9-23)
[2025-03-27 06:49] LABS: ASPARTATE AMINOTRANSFERASE 22 IU/L (<34); BILIRUBIN DIRECT 0.3 mg/dL (<=3.0); PHOSPHORUS 6.3 mg/dL (2.5-4.9)
[2025-03-27 06:50] LABS: BILIRUBIN TOTAL 0.6 mg/dL (0.1-1.0); PROTEIN TOTAL 4.3 g/dL (6.0-8.3)
[2025-03-27 10:00] LABS: BG BASE EXCESS -6.6 mmol/L (-2.0-3.0); BG CARBOXYHEMOGLOBIN 0.4 % (0.5-1.5); BG DEOXYHEMOGLOBIN 5.9 % (0.0-5.0); BG FRACTION INSPIRED OXYGEN 35; BG HCO3 ACT 19.2 mmol/L (21.0-28.0); BG METHEMOGLOBIN 0.3 % (0.5-1.5); BG OXYGEN SATURATION 94.1 % (94.0-98.0); BG OXYHEMOGLOBIN 93.4 % (94.0-98.0); BG PCO2 39.0 mmHg (32.0-45.0); BG PEEP (cmH2O) 5.0 cmH2O; BG PH 7.309 (7.350-7.450); BG PO2 78.3 mmHg (83.0-108.0); BG SAMPLE SITE RIGHT RADIAL; BG TIDAL VOLUME(mL) 500.0 mL; BG TOTAL HEMOGLOBIN 9.2 g/dL (12.0-16.0); BG VENT MODE VENT - AC; BG VENT RATE 20.0 set
[2025-03-27] MEDS: KCL 20MEQ/100ML PREMIX 100 ML IV SCH (10:50)
[2025-03-27 11:05] LABS: PLATELET 29 x1000/uL (130-400)
[2025-03-27 13:36] LABS: BAND% 9.0 % (1.0-6.0); LYMPHOCYTES % MANUAL 12.0 % (20.0-60.0); MONOCYTES % MANUAL 7.0 % (2.0-8.0); NEUTROPHILS % MANUAL 72.0 % (45.0-75.0); NUCLEATED RED BLOOD CELLS 18 /100 WBC; PLATELET ESTIMATE DECREASED
[2025-03-28] VITALS (101 sets, daily range): BP systolic 74–112; BP diastolic 49–73; PULSE 79–100; RESP 21–40; TEMP 36.5–37.2252; O2SAT 54–100
[2025-03-28 07:40] LABS: CREATININE 3.2 mg/dL (0.6-1.0); UREA NITROGEN BLOOD 58.0 mg/dL (9-23)
[2025-03-28] MEDS: IPRATROPIUM/ALBUTEROL 0.5-3(2.5)MG/3ML NEB HHN PRN (07:52)
[2025-03-28 09:23] LABS: BG BASE EXCESS -7.2 mmol/L (-2.0-3.0); BG CARBOXYHEMOGLOBIN 2.2 % (0.5-1.5); BG DEOXYHEMOGLOBIN 8.6 % (0.0-5.0); BG FRACTION INSPIRED OXYGEN 35; BG HCO3 ACT 18.5 mmol/L (21.0-28.0); BG METHEMOGLOBIN 0.3 % (0.5-1.5); BG OXYGEN SATURATION 91.2 % (94.0-98.0); BG OXYHEMOGLOBIN 88.9 % (94.0-98.0); BG PCO2 38.0 mmHg (32.0-45.0); BG PEEP (cmH2O) 5.0 cmH2O; BG PH 7.306 (7.350-7.450); BG PO2 67.0 mmHg (83.0-108.0); BG SAMPLE SITE LEFT RADIAL; BG TIDAL VOLUME(mL) 450.0 mL; BG TOTAL HEMOGLOBIN 7.6 g/dL (12.0-16.0); BG VENT MODE VENT - AC; BG VENT RATE 20.0 set
[2025-03-28 10:00] LABS: HEMATOCRIT. 22.9 % (36.0-48.0); MEAN PLATELET VOLUME 12.6 fl (7.4-10.4); PLATELET 72 x1000/uL (130-400); RED BLOOD CELL COUNT 2.35 mill/uL (4.2-5.4); RED CELL DISTRIBUTION WIDTH 18.8 % (11.6-14.6)
[2025-03-28 10:06] LABS: HEMOGLOBIN. 7.0 g/dL (12.0-16.0)
[2025-03-28] MEDS: MIDODRINE HCL 5MG TABLET PO SCH (12:20)
[2025-03-28 18:29] LABS: LYMPHOCYTES % MANUAL 15.0 % (20.0-60.0); METAMYELOCYTES % 1.0 % (0-0); MONOCYTES % MANUAL 9.0 % (2.0-8.0); MYELOCYTES % 1.0 % (0-0); NEUTROPHILS % MANUAL 74.0 % (45.0-75.0); PLATELET ESTIMATE DECREASED
[2025-03-28] MEDS: MICAFUNGIN 100 MG in SODIUM CHLORIDE 0.9% 100 ML IV SCH (23:30)
[2025-03-29] VITALS (95 sets, daily range): BP systolic 54–166; BP diastolic 13–91; PULSE 78–110; RESP 16–35; TEMP 36.4–37.00296; O2SAT 59–100
[2025-03-29] MEDS: VANCOMYCIN 125MG/2.5ML ORAL SYR PO SCH
[2025-03-29 04:41] LABS: HEMATOCRIT. 28.8 % (36.0-48.0); HEMOGLOBIN. 9.0 g/dL (12.0-16.0); INR 1.3; MEAN PLATELET VOLUME 13.0 fl (7.4-10.4); PLATELET 89 x1000/uL (130-400); RED BLOOD CELL COUNT 3.00 mill/uL (4.2-5.4); RED CELL DISTRIBUTION WIDTH 18.2 % (11.6-14.6)
[2025-03-29 04:56] LABS: CREATININE 3.6 mg/dL (0.6-1.0); UREA NITROGEN BLOOD 83 mg/dL (9-23)
[2025-03-29 04:58] LABS: PHOSPHORUS 5.3 mg/dL (2.5-4.9)
[2025-03-29 09:52] LABS: LYMPHOCYTES % MANUAL 5.0 % (20.0-60.0); MONOCYTES % MANUAL 10.0 % (2.0-8.0); NEUTROPHILS % MANUAL 85.0 % (45.0-75.0); NUCLEATED RED BLOOD CELLS 9 /100 WBC; PLATELET ESTIMATE DECREASED
[2025-03-29] MEDS ORDERED: LIDOCAINE HCL/EPINEPHRINE 1%-EPI 1:100,000 20ML VIAL ONE (10:34)
[2025-03-29] MEDS ORDERED: VECURONIUM BROMIDE 10 MG/VIAL IV ONE (10:50)
[2025-03-29] MEDS ORDERED: FENTANYL CITRATE/PF 50MCG/ML 2ML VIAL ONE (11:17)
[2025-03-29] MEDS: MIDODRINE HCL 5MG TABLET PO SCH (13:00)
[2025-03-29] MEDS: HYDROCORTISONE SOD SUCCINATE 100 MG/2 ML VIAL IV SCH (21:26)
[2025-03-30] VITALS (106 sets, daily range): BP systolic 75–113; BP diastolic 40–80; PULSE 65–89; RESP 17–30; TEMP 35.6–36.8; O2SAT 94–100
[2025-03-30 07:07] LABS: HEMATOCRIT. 27.8 % (36.0-48.0); HEMOGLOBIN. 8.6 g/dL (12.0-16.0); MEAN PLATELET VOLUME 13.1 fl (7.4-10.4); PLATELET 84 x1000/uL (130-400); RED BLOOD CELL COUNT 2.84 mill/uL (4.2-5.4); RED CELL DISTRIBUTION WIDTH 18.3 % (11.6-14.6)
[2025-03-30 07:13] LABS: CREATININE 3.6 mg/dL (0.6-1.0); UREA NITROGEN BLOOD 70 mg/dL (9-23)
[2025-03-30 07:14] LABS: PROTEIN TOTAL 4.2 g/dL (6.0-8.3)
[2025-03-30 07:15] LABS: ASPARTATE AMINOTRANSFERASE 22 IU/L (<34); BILIRUBIN DIRECT 0.4 mg/dL (<=3.0); PHOSPHORUS 5.7 mg/dL (2.5-4.9)
[2025-03-30 07:16] LABS: BILIRUBIN TOTAL 0.6 mg/dL (0.1-1.0)
[2025-03-30 09:09] LABS: BG BASE EXCESS -6.6 mmol/L (-2.0-3.0); BG CARBOXYHEMOGLOBIN 1.1 % (0.5-1.5); BG DEOXYHEMOGLOBIN 5.6 % (0.0-5.0); BG FRACTION INSPIRED OXYGEN 35; BG HCO3 ACT 18.5 mmol/L (21.0-28.0); BG METHEMOGLOBIN 0.3 % (0.5-1.5); BG OXYGEN SATURATION 94.3 % (94.0-98.0); BG OXYHEMOGLOBIN 93.0 % (94.0-98.0); BG PCO2 35.3 mmHg (32.0-45.0); BG PEEP (cmH2O) 5.0 cmH2O; BG PH 7.338 (7.350-7.450); BG PO2 77.0 mmHg (83.0-108.0); BG SAMPLE SITE RIGHT RADIAL; BG TIDAL VOLUME(mL) 500.0 mL; BG TOTAL HEMOGLOBIN 9.2 g/dL (12.0-16.0); BG VENT MODE VENT - AC; BG VENT RATE 20.0 set
[2025-03-30] MEDS: MIDODRINE HCL 5MG TABLET PO SCH (12:14)
[2025-03-30] MEDS: VANCOMYCIN 2GM PMX (XELLIA) 400 ML IV NR (13:15)
[2025-03-30] MEDS: POTASSIUM CHLORIDE 20MEQ/PACKET PO NR (13:15)
[2025-03-30] MEDS: RIFAXIMIN 550 MG TABLET PO SCH (15:22)
[2025-03-30] MEDS: ACETYLCYSTEINE 200MG/ML 20% VIAL 4ML INH SCH (16:09)
[2025-03-30] MEDS: IPRATROPIUM/ALBUTEROL 0.5-3(2.5)MG/3ML NEB HHN SCH (16:09)
[2025-03-30] MEDS: MICAFUNGIN 100 MG in SODIUM CHLORIDE 0.9% 100 ML IV SCH (17:34)
[2025-03-30 19:14] LABS: FOLIC ACID (FOLATE) SERUM > 20.00 ng/mL (>5.38)
[2025-03-30 20:35] LABS: LYMPHOCYTES % MANUAL 11.0 % (20.0-60.0); MONOCYTES % MANUAL 8.0 % (2.0-8.0); NEUTROPHILS % MANUAL 81.0 % (45.0-75.0); NUCLEATED RED BLOOD CELLS 33 /100 WBC; PLATELET ESTIMATE DECREASED
[2025-03-31] VITALS (121 sets, daily range): BP systolic 37–197; BP diastolic 13–113; PULSE 73–119; RESP 17–43; TEMP 31.55808–36.55848; O2SAT 90–100
[2025-03-31 08:00] LABS: HEMATOCRIT. 29.3 % (36.0-48.0); HEMOGLOBIN. 9.3 g/dL (12.0-16.0); RED BLOOD CELL COUNT 2.97 mill/uL (4.2-5.4); RED CELL DISTRIBUTION WIDTH 19.0 % (11.6-14.6)
[2025-03-31 08:19] LABS: CREATININE 3.9 mg/dL (0.6-1.0)
[2025-03-31 08:20] LABS: UREA NITROGEN BLOOD 88 mg/dL (9-23)
[2025-03-31 08:22] LABS: PHOSPHORUS 6.8 mg/dL (2.5-4.9)
[2025-03-31] MEDS: RACEPINEPHRINE 2.25% 0.5ML NEB VIAL HHN PRN (12:37)
[2025-03-31] MEDS: MIDAZOLAM HCL 100 MG in SODIUM CHLORIDE 0.9% 80 ML IV PRN (12:46)
[2025-03-31] MEDS: PHENYLEPHRINE 100 MG in DEXT 5% WATER 240 ML IV PRN (12:47)
[2025-03-31 13:47] LABS: BG BASE EXCESS -16.5 mmol/L (-2.0-3.0); BG CARBOXYHEMOGLOBIN 0.6 % (0.5-1.5); BG DEOXYHEMOGLOBIN 0.5 % (0.0-5.0); BG FRACTION INSPIRED OXYGEN 100; BG HCO3 ACT 11.5 mmol/L (21.0-28.0); BG METHEMOGLOBIN 0.3 % (0.5-1.5); BG OXYGEN SATURATION 99.5 % (94.0-98.0); BG OXYHEMOGLOBIN 98.6 % (94.0-98.0); BG PCO2 35.9 mmHg (32.0-45.0); BG PEEP (cmH2O) 5.0 cmH2O; BG PH 7.123 (7.350-7.450); BG PO2 338.6 mmHg (83.0-108.0); BG SAMPLE SITE LEFT BRACHIAL; BG TIDAL VOLUME(mL) 500.0 mL; BG TOTAL HEMOGLOBIN 7.3 g/dL (12.0-16.0); BG VENT MODE VENT - AC; BG VENT RATE 20.0 set
[2025-03-31] MEDS: SODIUM BICARBONATE 8.4% 50MEQ/50ML SYR IV NR ×4 (14:40→23:39)
[2025-03-31] MEDS: VASOPRESSIN 20 UNIT in SODIUM CHLORIDE 0.9% 99 ML IV PRN (14:41)
[2025-03-31 16:40] LABS: BG BASE EXCESS -19.6 mmol/L (-2.0-3.0); BG CARBOXYHEMOGLOBIN 0.6 % (0.5-1.5); BG DEOXYHEMOGLOBIN 0.6 % (0.0-5.0); BG FRACTION INSPIRED OXYGEN 80; BG HCO3 ACT 10.1 mmol/L (21.0-28.0); BG METHEMOGLOBIN 0.2 % (0.5-1.5); BG OXYGEN SATURATION 99.4 % (94.0-98.0); BG OXYHEMOGLOBIN 98.6 % (94.0-98.0); BG PCO2 39.2 mmHg (32.0-45.0); BG PEEP (cmH2O) 5.0 cmH2O; BG PH 7.028 (7.350-7.450); BG PO2 320.3 mmHg (83.0-108.0); BG SAMPLE SITE LEFT BRACHIAL; BG TIDAL VOLUME(mL) 500.0 mL; BG TOTAL HEMOGLOBIN 9.6 g/dL (12.0-16.0); BG VENT MODE VENT - AC; BG VENT RATE 24.0 set
[2025-03-31] MEDS: SODIUM BICARBONATE 8.4% 50MEQ/50ML SYR IV SCH (17:20)
[2025-03-31 17:23] LABS: INR 1.5
[2025-03-31] MEDS: EPINEPHRINE 10 MG in SODIUM CHLORIDE 0.9% 240 ML IV PRN (18:59)
[2025-03-31 21:33] LABS: BG BASE EXCESS -20.5 mmol/L (-2.0-3.0); BG CARBOXYHEMOGLOBIN 0.0 % (0.5-1.5); BG DEOXYHEMOGLOBIN 0.5 % (0.0-5.0); BG FRACTION INSPIRED OXYGEN 80; BG HCO3 ACT 9.5 mmol/L (21.0-28.0); BG METHEMOGLOBIN 0.0 % (0.5-1.5); BG OXYGEN SATURATION 99.5 % (94.0-98.0); BG OXYHEMOGLOBIN 99.5 % (94.0-98.0); BG PCO2 37.7 mmHg (32.0-45.0); BG PEEP (cmH2O) 5.0 cmH2O; BG PH 7.019 (7.350-7.450); BG PO2 325.5 mmHg (83.0-108.0); BG SAMPLE SITE RIGHT RADIAL; BG TIDAL VOLUME(mL) 500.0 mL; BG TOTAL HEMOGLOBIN 11.4 g/dL (12.0-16.0); BG VENT MODE VENT - AC; BG VENT RATE 30.0 set
[2025-03-31] MEDS: EPINEPHRINE 20 MG in SODIUM CHLORIDE 0.9% 480 ML IV PRN (21:44)
[2025-03-31] MEDS: HYDROCORTISONE SOD SUCCINATE 100 MG/2 ML VIAL IV SCH (21:45)
[2025-03-31 22:00] LABS: HEMATOCRIT. 34.3 % (36.0-48.0); HEMOGLOBIN. 10.4 g/dL (12.0-16.0); MEAN PLATELET VOLUME 12.9 fl (7.4-10.4); PLATELET 62 x1000/uL (130-400); RED BLOOD CELL COUNT 3.50 mill/uL (4.2-5.4); RED CELL DISTRIBUTION WIDTH 20.3 % (11.6-14.6)
[2025-03-31 22:18] LABS: INR 1.7
[2025-03-31 23:52] LABS: BAND% 2.0 % (1.0-6.0); LYMPHOCYTES % MANUAL 14.0 % (20.0-60.0); MONOCYTES % MANUAL 7.0 % (2.0-8.0); NEUTROPHILS % MANUAL 77.0 % (45.0-75.0); NUCLEATED RED BLOOD CELLS 42 /100 WBC; PLATELET ESTIMATE DECREASED
[2025-04-01] VITALS (120 sets, daily range): BP systolic 32–122; BP diastolic 11–90; PULSE 88–106; RESP 0–33; TEMP 32.8–36.9474; O2SAT 93–100
[2025-04-01] MEDS: ALBUMIN HUMAN 25GM/500ML (5%) IV SCH (00:29)
[2025-04-01 05:43] LABS: HEMATOCRIT. 23.8 % (36.0-48.0); MEAN PLATELET VOLUME 12.8 fl (7.4-10.4); PLATELET 52 x1000/uL (130-400); RED BLOOD CELL COUNT 2.39 mill/uL (4.2-5.4); RED CELL DISTRIBUTION WIDTH 20.9 % (11.6-14.6)
[2025-04-01 05:53] LABS: CREATININE 3.7 mg/dL (0.6-1.0)
[2025-04-01 05:54] LABS: PROTEIN TOTAL 3.9 g/dL (6.0-8.3); UREA NITROGEN BLOOD 77 mg/dL (9-23)
[2025-04-01 05:55] LABS: ASPARTATE AMINOTRANSFERASE 260 IU/L (<34)
[2025-04-01 05:56] LABS: BILIRUBIN DIRECT 1.0 mg/dL (<=3.0); BILIRUBIN TOTAL 1.5 mg/dL (0.1-1.0)
[2025-04-01 06:02] LABS: BG BASE EXCESS -20.5 mmol/L (-2.0-3.0); BG CARBOXYHEMOGLOBIN 0.3 % (0.5-1.5); BG DEOXYHEMOGLOBIN 0.7 % (0.0-5.0); BG FRACTION INSPIRED OXYGEN 70; BG HCO3 ACT 9.0 mmol/L (21.0-28.0); BG METHEMOGLOBIN 0.3 % (0.5-1.5); BG OXYGEN SATURATION 99.3 % (94.0-98.0); BG OXYHEMOGLOBIN 98.7 % (94.0-98.0); BG PCO2 35.6 mmHg (32.0-45.0); BG PEEP (cmH2O) 5.0 cmH2O; BG PH 7.019 (7.350-7.450); BG PO2 249.9 mmHg (83.0-108.0); BG SAMPLE SITE LEFT RADIAL; BG TIDAL VOLUME(mL) 500.0 mL; BG TOTAL HEMOGLOBIN 7.8 g/dL (12.0-16.0); BG VENT MODE VENT - AC; BG VENT RATE 30.0 set
[2025-04-01 06:10] LABS: PHOSPHORUS 9.3 mg/dL (2.5-4.9)
[2025-04-01 06:12] LABS: INR 1.8
[2025-04-01] MEDS: DOPAMINE 400MG/250ML PREMIX 250 ML IV PRN (06:49)
[2025-04-01] MEDS: SODIUM BICARBONATE 8.4% 50MEQ/50ML SYR IV NR (06:51)
[2025-04-01 07:03] LABS: HEMOGLOBIN. 7.0 g/dL (12.0-16.0)
[2025-04-01] MEDS: SODIUM BICARBONATE 150 MEQ in DEXTROSE 5% WATER 850 ML IV SCH (07:32)
[2025-04-01] MEDS ORDERED: HYDROCORTISONE SOD SUCCINATE 100 MG/2 ML VIAL IV SCH (09:00)
[2025-04-01 09:43] LABS: BG BASE EXCESS -20.7 mmol/L (-2.0-3.0); BG CARBOXYHEMOGLOBIN 1.6 % (0.5-1.5); BG DEOXYHEMOGLOBIN 0.8 % (0.0-5.0); BG FRACTION INSPIRED OXYGEN 70; BG HCO3 ACT 8.9 mmol/L (21.0-28.0); BG METHEMOGLOBIN 0.4 % (0.5-1.5); BG OXYGEN SATURATION 99.2 % (94.0-98.0); BG OXYHEMOGLOBIN 97.2 % (94.0-98.0); BG PCO2 36.6 mmHg (32.0-45.0); BG PEEP (cmH2O) 5.0 cmH2O; BG PH 7.005 (7.350-7.450); BG PO2 216.8 mmHg (83.0-108.0); BG SAMPLE SITE LEFT BRACHIAL; BG TIDAL VOLUME(mL) 500.0 mL; BG TOTAL HEMOGLOBIN 7.5 g/dL (12.0-16.0); BG VENT MODE VENT - AC; BG VENT RATE 30.0 set
[2025-04-01] MEDS: HYDROCORTISONE SOD SUCCINATE 100 MG/2 ML VIAL IV SCH (13:14)
[2025-04-01 13:22] LABS: BAND% 26.0 % (1.0-6.0); LYMPHOCYTES % MANUAL 11.0 % (20.0-60.0); MONOCYTES % MANUAL 5.0 % (2.0-8.0); NEUTROPHILS % MANUAL 58.0 % (45.0-75.0); NUCLEATED RED BLOOD CELLS 162 /100 WBC; PLATELET ESTIMATE MARKEDLY DECREASED
[2025-04-01 13:46] LABS: MEAN PLATELET VOLUME 13.2 fl (7.4-10.4); PLATELET 67 x1000/uL (130-400)
[2025-04-01 13:49] LABS: BAND% 8.0 % (1.0-6.0); LYMPHOCYTES % MANUAL 18.0 % (20.0-60.0); MONOCYTES % MANUAL 2.0 % (2.0-8.0); NEUTROPHILS % MANUAL 72.0 % (45.0-75.0); NUCLEATED RED BLOOD CELLS 58 /100 WBC; PLATELET ESTIMATE MARKEDLY DECREASED
[2025-04-01 21:14] LABS: CREATININE 3.5 mg/dL (0.6-1.0); UREA NITROGEN BLOOD 70.0 mg/dL (9-23)
[2025-04-01 23:48] LABS: HEMATOCRIT. 27.3 % (36.0-48.0); HEMOGLOBIN. 8.0 g/dL (12.0-16.0); MEAN PLATELET VOLUME 13.2 fl (7.4-10.4); RED BLOOD CELL COUNT 2.79 mill/uL (4.2-5.4); RED CELL DISTRIBUTION WIDTH 18.2 % (11.6-14.6)
[2025-04-02] VITALS (71 sets, daily range): BP systolic 30–91; BP diastolic 12–45; PULSE 66–89; RESP 0–30; TEMP 33.8916–36.4; O2SAT 53–96
[2025-04-02 00:02] LABS: PLATELET 31 x1000/uL (130-400)
[2025-04-02 05:26] LABS: BASOPHILS % 1.3 % (0.0-2.0); EOSINOPHILS % 0.0 % (0.0-5.0); HEMATOCRIT. 22.7 % (36.0-48.0); LYMPHOCYTES % 16.4 % (20.0-50.0); MEAN PLATELET VOLUME 12.5 fl (7.4-10.4); MONOCYTES % 6.1 % (2.0-8.0); NEUTROPHILS % 76.2 % (40.0-76.0); RED BLOOD CELL COUNT 2.29 mill/uL (4.2-5.4); RED CELL DISTRIBUTION WIDTH 18.5 % (11.6-14.6)
[2025-04-02 05:40] LABS: CREATININE 3.4 mg/dL (0.6-1.0); UREA NITROGEN BLOOD 68 mg/dL (9-23)
[2025-04-02 06:01] LABS: PHOSPHORUS 11.5 mg/dL (2.5-4.9)
[2025-04-02 06:20] LABS: HEMOGLOBIN. 6.6 g/dL (12.0-16.0); PLATELET 24 x1000/uL (130-400)
[2025-04-02 07:18] LABS: BAND% 15.0 % (1.0-6.0); BASOPHILS % MANUAL 7.0 % (0.0-2.0); EOSINOPHILS % MANUAL 2.0 % (0.0-5.0); LYMPHOCYTES % MANUAL 14.0 % (20.0-60.0); MONOCYTES % MANUAL 4.0 % (2.0-8.0); MYELOCYTES % 2.0 % (0-0); NUCLEATED RED BLOOD CELLS 65 /100 WBC; PLATELET ESTIMATE DECREASED
[2025-04-02 07:25] LABS: BLASTS % 1.0 % (0-0)
[2025-04-02 07:26] LABS: NEUTROPHILS % MANUAL 55.0 % (45.0-75.0)
[2025-04-02] MEDS: VANCOMYCIN 750MG PREMIX 150 ML IV SCH (09:12)
[2025-04-02] MEDS: MORPHINE SULFATE 4 MG/ML INJ (FOR IV/IM USE) IV PRN (13:49)
== END 2025-04-02 14:49 | DRG 5 ==
LOC: ER 12:20 → 8EST 19:43 → EDBEDREQ 22:06 → EDBEDREQTM 22:06 → ENRESERV 22:34 → 7WST 03-04 22:55 → 5EST 03-06 05:57 → CVICU 03-14 22:45
PROVIDERS: ADMIT Internal Medicine; ATTEND Internal Medicine
PROC: 0DB68ZX Excision of Stomach, Via Natural or Artificial Opening Endoscopic, Diagnostic (ICD-10-PCS; 2025-02-24)
PROC: 0DB78ZX Excision of Stomach, Pylorus, Via Natural or Artificial Opening Endoscopic, Diagnostic (ICD-10-PCS; 2025-02-24)
PROC: 5A0955A Assistance with Respiratory Ventilation, Greater than 96 Consecutive Hours, High Flow/Velocity Cannula (ICD-10-PCS; 2025-03-09)
PROC: 0BH17EZ Insertion of Endotracheal Airway into Trachea, Via Natural or Artificial Opening (ICD-10-PCS; 2025-03-15)
PROC: 02HV33Z Insertion of Infusion Device into Superior Vena Cava, Percutaneous Approach (ICD-10-PCS; 2025-03-15)
PROC: B548ZZA Ultrasonography of Superior Vena Cava, Guidance (ICD-10-PCS; 2025-03-15)
PROC: 5A1955Z Respiratory Ventilation, Greater than 96 Consecutive Hours (ICD-10-PCS; 2025-03-15)
PROC: 30243N1 Transfusion of Nonautologous Red Blood Cells into Central Vein, Percutaneous Approach (ICD-10-PCS; 2025-03-17)
PROC: 6A551Z2 Pheresis of Platelets, Multiple (ICD-10-PCS; 2025-03-18)
PROC: B54CZZA Ultrasonography of Left Lower Extremity Veins, Guidance (ICD-10-PCS; 2025-03-26)
PROC: 5A1D70Z Performance of Urinary Filtration, Intermittent, Less than 6 Hours Per Day (ICD-10-PCS; 2025-03-26)
PROC: 06HY33Z Insertion of Infusion Device into Lower Vein, Percutaneous Approach (ICD-10-PCS; 2025-03-26)
PROC: 5A1D70Z Performance of Urinary Filtration, Intermittent, Less than 6 Hours Per Day (ICD-10-PCS; 2025-03-27)
PROC: 0B110F4 Bypass Trachea to Cutaneous with Tracheostomy Device, Open Approach (ICD-10-PCS; principal; 2025-03-29)
PROC: 5A1955Z Respiratory Ventilation, Greater than 96 Consecutive Hours (ICD-10-PCS; 2025-03-29)
PROC: 5A1D70Z Performance of Urinary Filtration, Intermittent, Less than 6 Hours Per Day (ICD-10-PCS; 2025-03-29)
PROC: 5A1D70Z Performance of Urinary Filtration, Intermittent, Less than 6 Hours Per Day (ICD-10-PCS; 2025-03-31)
PROC: 30243K1 Transfusion of Nonautologous Frozen Plasma into Central Vein, Percutaneous Approach (ICD-10-PCS; 2025-03-31)
PROC: 02HV33Z Insertion of Infusion Device into Superior Vena Cava, Percutaneous Approach (ICD-10-PCS; 2025-03-31)
PROC: B548ZZA Ultrasonography of Superior Vena Cava, Guidance (ICD-10-PCS; 2025-03-31)
DX: A40.9 Streptococcal sepsis, unspecified (principal); R65.21 Severe sepsis with septic shock; N17.0 Acute kidney failure with tubular necrosis; J15.1 Pneumonia due to Pseudomonas; K70.40 Alcoholic hepatic failure without coma; Z66 Do not resuscitate; E43 Unspecified severe protein-calorie malnutrition; D68.9 Coagulation defect, unspecified; Z99.11 Dependence on respirator [ventilator] status; J90 Pleural effusion, not elsewhere classified; N39.0 Urinary tract infection, site not specified; D69.6 Thrombocytopenia, unspecified; I46.9 Cardiac arrest, cause unspecified; J80 Acute respiratory distress syndrome; G93.40 Encephalopathy, unspecified; K70.31 Alcoholic cirrhosis of liver with ascites; D53.9 Nutritional anemia, unspecified; F10.10 Alcohol abuse, uncomplicated; E66.9 Obesity, unspecified; I11.9 Hypertensive heart disease without heart failure; F12.10 Cannabis abuse, uncomplicated; J43.9 Emphysema, unspecified; E87.20 Acidosis, unspecified; R13.10 Dysphagia, unspecified; E87.5 Hyperkalemia; K44.9 Diaphragmatic hernia without obstruction or gangrene; E87.6 Hypokalemia; G89.29 Other chronic pain; K50.10 Crohn's disease of large intestine without complications; K29.50 Unspecified chronic gastritis without bleeding; Z74.01 Bed confinement status; K76.0 Fatty (change of) liver, not elsewhere classified; E83.42 Hypomagnesemia; E53.8 Deficiency of other specified B group vitamins; E78.5 Hyperlipidemia, unspecified; L98.8 Other specified disorders of the skin and subcutaneous tissue; J98.11 Atelectasis; K59.00 Constipation, unspecified; E16.2 Hypoglycemia, unspecified; L30.9 Dermatitis, unspecified; Z88.0 Allergy status to penicillin; F17.210 Nicotine dependence, cigarettes, uncomplicated; Z68.39 Body mass index [BMI] 39.0-39.9, adult; M47.812 Spondylosis without myelopathy or radiculopathy, cervical region; Y90.9 Presence of alcohol in blood, level not specified; Z71.41 Alcohol abuse counseling and surveillance of alcoholic; Z82.49 Family history of ischemic heart disease and other diseases of the circulatory system; M54.50 Low back pain, unspecified; D25.9 Leiomyoma of uterus, unspecified
CPT/HCPCS: 31500; 31720; 36415; 36556; 36600; 70551; 71045; 71260; 72141; 74018; 74177; 76604; 76705; 76770; 77001; 80048; 80053; 80076; 80202; 81003; 82140; 82270; 82330; 82375; 82550; 82570; 82607; 82728; 82746; 82805; 82962; 83540; 83550; 83605; 83735; 83880; 83935; 84100; 84132; 84145; 84300; 84425; 84443; 85014; 85018; 85025; 85027; 85044; 85049; 85379; 85384; 86592; 86705; 86709; 86850; 86900; 86920; 86927; 87015; 87045; 87070; 87077; 87106; 87186; 87340; 87427; 87449; 88305; 88312; 88313; 89055; 90935; 92610; 93005; 93970; 94002; 94003; 94070; 94640; 94664; 96360; 96372; 97161; 97166; 97535; 98960; 99291; A4606; A4615; C1752; C1769; C1887; J0612; J0692; J0696; J0713; J1265; J1720; J1815; J1885; J1938; J1956; J2004; J2185; J2248; J2270; J2371; J2405; J2470; J2704; J3010; J3373; J3411; J3475; J3480; J3490; J7030; J7040; J7042; J7050; J7060; J7070; J7512; J7608; P9016; P9017; P9034; P9041; P9047; Q0163; Q9967; A4217